=== PATIENT | female | born 1985 | race African-American/Black ===

== ENCOUNTER 2021-06-14 09:30 | Inpatient (IN) | payer OTHER, MEDICAID ==
[~2021-06-14] VITALS: Ht 165.1 cm; Wt 70.3 kg
[2021-06-14 09:40] VITALS: BP 219/108
--- NOTE | 2021-06-14 09:54 | NUR ---
38 YO F C/O ABD PAIN 07/06, WITH NAUSEA VOMITTING, STATED HAD BLOOD IN THE VOMIT. PT STATED HAD BEEN VOMITTING SINCE 2AM. PT STATED LAST MEAL WAS AT 5PM. PMH: HTN, DM, CKD. NKA
[2021-06-14] MEDS ORDERED: ONDANSETRON 4 MG/2 ML VIAL IVP ONE ×2 (09:55→12:10)
[2021-06-14] MEDS ORDERED: NACL 0.9% 1,000 ML IV SCH (09:55)
[2021-06-14] MEDS ORDERED: KETOROLAC 30 MG/ML VIAL IVP ONE (09:55)
[2021-06-14] MEDS ORDERED: MORPHINE SULFATE 4 MG/ML SYR IVP ONE ×2 (11:15→12:10)
[2021-06-14 11:48] LABS: BASOPHILS # (AUTO) 0.1 K/uL (0.00-0.22); BASOPHILS % (AUTO) 0.5 % (0.0-2.0); EOSINOPHILS # (AUTO) 0.1 K/uL (0-0.4); EOSINOPHILS % (AUTO) 0.7 % (0.0-4.0); HEMATOCRIT 34.1 % (36-48); HEMOGLOBIN 11.1 g/dL (12.0-16.0); LYMPHOCYTES % (AUTO) 5.1 % (20.5-51.1); MEAN CORPUSCULAR HEMOGLOBIN 29 pg (27-31); MEAN CORPUSCULAR HGB CONC 32 g/dL (33-37); MEAN CORPUSCULAR VOLUME 87.8 fL (80-94); MONOCYTES # (AUTO) 0.3 K/uL (0.8-1.0); MONOCYTES % (AUTO) 1.7 % (1.7-9.3); NEUTROPHILS # (AUTO) 17.4 K/uL (1.8-7.7); PLATELET COUNT (AUTO) 396 K/uL (140-450); RED BLOOD CELL COUNT(AUTO) 3.89 MIL/uL (4.20-5.40); RED CELL DISTRIBUTION WIDTH 15.2 % (11.6-13.7); WHITE BLOOD COUNT (AUTO) 18.8 K/uL (4.8-10.8)
[2021-06-14 12:00] LABS: ALBUMIN 3.6 g/dL (3.4-5.0); ANION GAP 15.9 (8-16); CARBON DIOXIDE 21.2 mmol/L (21-32); CREATININE 3.3 mg/dL (0.6-1.3); POTASSIUM 4.1 mmol/L (3.5-5.1); TOTAL BILIRUBIN 0.3 mg/dL (0.0-1.0)
[2021-06-14] MEDS ORDERED: guaiFENesin DM 200/20 MG-10 ML 10 ML UDC PO PRN (12:55)
[2021-06-14] MEDS ORDERED: DOCUSATE SODIUM 100 MG GELCAP PO PRN (12:55)
[2021-06-14] MEDS ORDERED: ACETAMINOPHEN 325 MG TAB PO PRN (12:55)
[2021-06-14] MEDS: DEXT 5% /NACL 0.9% 1,000 ML IV SCH (12:55)
[2021-06-14] MEDS ORDERED: ZOLPIDEM 5 MG TAB PO PRN (12:55)
[2021-06-14] MEDS ORDERED: POTASSIUM CHLORIDE 40 MEQ, LIDOCAINE MPF 1% 25 MG in NACL 0.9% 250 ML IV PRN (12:55)
[2021-06-14] MEDS ORDERED: PIPERACILLIN/TAZOBACTAM 3.375 GM in DEXTROSE 5% 50 ML IV SCH (13:00)
[2021-06-14] MEDS ORDERED: DEXTROSE 50% 50 ML SYR IVP PRN (13:00)
[2021-06-14] MEDS ORDERED: PIPERACILLIN/TAZOBACTAM 3.375 GM VIAL IV ONE (13:12)
[2021-06-14] MEDS ORDERED: MECLIZINE 25 MG TAB PO ONE (13:45)
[2021-06-14] MEDS ORDERED: MECLIZINE 25 MG TAB ONE (13:46)
[2021-06-14 13:47] LABS: PROTHROMBIN TIME 9.2 secs (10.8-13.4)
--- NOTE | 2021-06-14 14:34 | NUR ---
QUEEN MELANY [phone]
[2021-06-14] MEDS: HYDROcodone/APAP 7.5/325 MG 1 TAB PO PRN (14:38)
[2021-06-14] MEDS ORDERED: LABETALOL 100 MG/20 ML VIAL IV SCH (14:45)
--- NOTE | 2021-06-14 15:14 | NUR ---
VITAL SIGN, 167/136, HR 109, O2 SAT 100 RESP RATE 24, PATIENT EYES CLOSE AT THIS TIME, ENCOURAGED TO REST, IVF ONGOING WELL TOLERATED.
[2021-06-14] MEDS ORDERED: LORazepam 2 MG/ML VIAL ONE (16:24)
[2021-06-14] MEDS: LORazepam 2 MG/ML VIAL IM/IVP PRN (16:32)
[2021-06-14] MEDS: INSULIN LISPRO SLIDING SCALE 100 UNITS/ML VIAL SUBQ PRN (17:17)
[2021-06-14] MEDS: BLOOD GLUCOSE MONITORING 1 DEV DEV FS SCH ×2 (17:17→21:09)
[2021-06-14] MEDS: LABETALOL 100 MG/20 ML VIAL IV SCH ×2 (18:16→23:53)
--- NOTE | 2021-06-14 19:18 | NUR ---
BE TO EMR TRAINER NURSE MINDA FOR CONTINUOUS CARE
--- NOTE | 2021-06-14 19:22 | NUR ---
PT HAS EYES CLOSED; AROUSABLE, IVF RUNNING. NO ACUTE DISTRESS NOTED.. VSS.
[2021-06-14 19:35] LABS: CHOL/HDL RATIO 2.4 (1-4.5); MAGNESIUM 2.1 mg/dL (1.8-2.4); PHOSPHORUS 2.3 mg/dL (2.5-4.9); THYROID STIMULATING HORMONE 1.37 uIU/mL (0.34-3.74)
--- NOTE | 2021-06-14 20:00 | NUR ---
PATIENT WAS RECEIVED IN BED AWAKE AND ALERT, ABLE TO SPEAK HER NEEDS, NO S./S OF DISTRESS.
[2021-06-14 20:04] LABS: FREE T4 (FREE THYROXINE) 1.03 ng/dL (0.76-1.46)
[2021-06-14 20:23] LABS: APPEARANCE,URINE CLEAR (CLEAR); BILIRUBIN,URINE NEGATIVE (NEGATIVE); BLOOD, URINE 2+ (NEGATIVE); COLOR,URINE YELLOW (YELLOW); LEUKOCYTE ESTERASE ,URINE NEGATIVE (NEGATIVE); NITRITE, URINE NEGATIVE (NEGATIVE); PH,URINE 6.5 (5.0-9.0); UGLUCOSE TRACE (NEGATIVE)
[2021-06-14 20:44] LABS: BARBITURATE, URINE NEGATIVE ng/ml (NEG <=200); BENZODIAZEPINE, URINE NEGATIVE ng/mL (NEG <=200); CANNABINOID, URINE POSITIVE ng/mL (NEG <=50); COCAINE, URINE NEGATIVE ng/mL (NEG <=300); OPIATE, URINE NEGATIVE ng/mL (NEG <=2000); PHENCYCLIDINE SCREEN,URINE NEGATIVE ng/mL (NEG <=25)
--- NOTE | 2021-06-14 22:05 | NUR ---
REPORT GIVEN TO STEFANO FERGUSON PT TO GO TO RM 106B ADMITTED UNDER DR MONA LICEA.
[2021-06-14 22:13] LABS: WBC,URINE 0-5 /HPF (0-5)
--- NOTE | 2021-06-14 22:30 | NUR ---
PATIENT RECEIVED IN BED FROM ER, ALERT AND ORIENTED X 3, NO S/S OF DISTRESS, C/O TOLERABLE PAIN 12/13 IN HER ABD.
--- NOTE | 2021-06-14 23:00 | NUR ---
ALL DUE MEDS WERE GIVEN VIA IV, TOLERATED WELL BY THE PATIENT.
[2021-06-14] MEDS: hydrALAZINE 20 MG/ML VIAL IVP PRN (23:20)
--- NOTE | 2021-06-14 23:20 | NUR ---
APREZOLINE 10 MG IVP PRN WAS GIVEN FOR BP OF 212/102, HELPFUL AFTER 30 MINUTES.
--- NOTE | 2021-06-15 | NUR ---
LABETALOL 10 MG IVP DUE MED WAS GIVEN TO CONTROL HYPERTENSION, SOMEWHAT EFFECTIVE, BP WENT DOWN TO 157/85, OM=656 FROM 119.
--- NOTE | 2021-06-15 02:00 | NUR ---
PATIENT WENT OT THE BATHROOM HELPED UNHOOK TO THE IV PUMP. AND CONNECTED BACK AFTER SHE PEEH.
[2021-06-15 04:00] VITALS: BP 189/105
--- NOTE | 2021-06-15 05:00 | NUR ---
PATIENT WAS COMPLAINING OF ABD PAIN 03/15. NORCO 7/325 MG WAS GIVEN BY MOUTH, UNHELPFUL. MADE AWARE,
[2021-06-15] MEDS: HYDROcodone/APAP 7.5/325 MG 1 TAB PO PRN (05:04)
[2021-06-15] MEDS: DEXT 5% /NACL 0.9% 1,000 ML IV SCH (05:55)
[2021-06-15] MEDS: ONDANSETRON 4 MG/2 ML VIAL IM/IVP PRN ×2 (05:58→09:56)
[2021-06-15] MEDS: LABETALOL 100 MG/20 ML VIAL IV SCH ×2 (06:05→19:00)
[2021-06-15] MEDS: LORazepam 2 MG/ML VIAL IM/IVP PRN ×2 (06:25→17:35)
--- NOTE | 2021-06-15 06:57 | NUR ---
Debbie REPLIED WITH NEW ORDER OF MORPHINE 2 MG IVP X1 NOW.
--- NOTE | 2021-06-15 06:58 | NUR ---
ALL REPORTS WERE GIVEN, TRANSFER OF CARE ENDORSED.
[2021-06-15] MEDS ORDERED: MORPHINE SULFATE 2 MG/ML SYR IVP STA (07:00)
--- NOTE | 2021-06-15 07:05 | NUR ---
RECEIVED PATIENT FROM BOILERMAKER'S ASSISTANT RN FOR CONTINUITY OF CARE. PATIENT IS RESTING IN BED. NO S/S OF DISTRESS. ALL SAFETY PRECAUTIONS IN PLACE.
[2021-06-15 07:45] LABS: BASOPHILS # (AUTO) 0.1 K/uL (0.00-0.22); BASOPHILS % (AUTO) 0.5 % (0.0-2.0); EOSINOPHILS # (AUTO) 0.2 K/uL (0-0.4); EOSINOPHILS % (AUTO) 1.2 % (0.0-4.0); HEMATOCRIT 31.4 % (36-48); HEMOGLOBIN 10.1 g/dL (12.0-16.0); LYMPHOCYTES # (AUTO) 2.7 K/uL (2.5-16.5); LYMPHOCYTES % (AUTO) 14.6 % (20.5-51.1); MEAN CORPUSCULAR HEMOGLOBIN 29 pg (27-31); MEAN CORPUSCULAR HGB CONC 32 g/dL (33-37); MEAN CORPUSCULAR VOLUME 89.4 fL (80-94); MONOCYTES # (AUTO) 1.3 K/uL (0.8-1.0); MONOCYTES % (AUTO) 7.2 % (1.7-9.3); NEUTROPHILS # (AUTO) 14.1 K/uL (1.8-7.7); NEUTROPHILS % (AUTO) 76.5 % (42.2-75.2); PLATELET COUNT (AUTO) 390 K/uL (140-450); RED BLOOD CELL COUNT(AUTO) 3.51 MIL/uL (4.20-5.40); WHITE BLOOD COUNT (AUTO) 18.4 K/uL (4.8-10.8)
[2021-06-15] MEDS: BLOOD GLUCOSE MONITORING 1 DEV DEV FS SCH ×4 (07:48→20:50)
[2021-06-15 08:00] VITALS: BP 155/93
[2021-06-15 08:08] LABS: T4 (THYROXINE) 8.4 ug/dL (4.5-12.0)
--- NOTE | 2021-06-15 09:00 | NUR ---
ADMINISTERED SCHEDULED MEDICATIONS. PATIENT VERBALIZED UNDERSTANDING. ALL SAFETY PRECAUTIONS IN PLACE.
--- NOTE | 2021-06-15 09:02 | NUR ---
PATIENT HAS BEEN SCREENED AND CATEGORIZED LOW NUTRITION RISK. PATIENT WILL BE SEEN WITHIN 7 DAYS OF ADMISSION. 06/21/21 FNS REFERRAL RECEIVED FOR NAUSEA AND VOMITING OVER 3 DAYS NOT APPROPRIATE, ACCORDING TO MD H&P NOTE, PT'S SYMPTOMS BEGAN YESTERDAY. JACQUI PHELPS RD
[2021-06-15] MEDS: PANTOPRAZOLE 40 MG INJ VIAL IVP SCH (09:51)
[2021-06-15] MEDS ORDERED: HYDROmorphone 1 MG/ML AMP IVP SCH ×2 (11:00→19:10)
[2021-06-15 11:02] LABS: ANION GAP 21.6 (8-16); CARBON DIOXIDE 19.1 mmol/L (21-32); CREATININE 3.4 mg/dL (0.6-1.3); POTASSIUM 3.7 mmol/L (3.5-5.1)
--- NOTE | 2021-06-15 11:10 | NUR ---
PATIENT COMPLAINS OF 10/[address] DUNN. ADMINISTERED ONE TIME DOSE OF DILAUDID PER DR. DUNN. PATIENT VERBALIZED UNDERSTANDING. ALL SAFETY PRECAUTIONS IN PLACE. WILL CONTINUE TO MONITOR.
[2021-06-15] MEDS: NACL 0.45% 1,000 ML IV SCH (11:30)
[2021-06-15 12:00] VITALS: BP 187/120
[2021-06-15] MEDS: INSULIN LISPRO SLIDING SCALE 100 UNITS/ML VIAL SUBQ PRN ×2 (12:55→20:55)
--- NOTE | 2021-06-15 13:28 | NUR ---
DR. DUNN APPROVED PATIENT TO HAVE A FOOT IV. FOOT IV WAS OBTAINED. IV IS AT LEFT FOOT, 22G, FLUSHES WELL AND IS DRY, PATENT AND INTACT.
[2021-06-15] MEDS ORDERED: LABETALOL 100 MG/20 ML VIAL IV SCH (13:42)
[2021-06-15] MEDS ORDERED: METOCLOPRAMIDE 10 MG/2 ML INJ VIAL IVP PRN (13:55)
[2021-06-15 16:00] VITALS: BP 156/95
--- NOTE | 2021-06-15 16:50 | NUR ---
RECEIVED TORB FROM DR. DUNN TO CHANGE PATIENT'S DIET TO CLEAR LIQUIDS. ORDER INPUT. WILL CONTINUE TO MONITOR THE PATIENT.
--- NOTE | 2021-06-15 19:06 | NUR ---
NOTIFIED DR DUNN OF PATIENT'S CURRENT PAIN AND COMPLAINT OF NAUSEA. ALSO PLACED NEW IV AT LEFT FOOT 20G. IV IS CLEAN, DRY, INTACT, AND FLUSHING WELL.
--- NOTE | 2021-06-15 19:19 | NUR ---
PATIENT COMPLAINS OF 10/10 ABDOMINAL PAIN. ADMINISTERED ONE TIME DOSE OF DILAUDID PER DR. DUNN. BP 156/95, HR 104.
--- NOTE | 2021-06-15 19:25 | NUR ---
ENDORSED PATIENT TO FREIGHT SOLICITOR RN FOR CONTINUITY OF CARE. PATIENT IS STABLE.
[2021-06-15 20:00] VITALS: BP 155/93
[2021-06-15] MEDS: hydrALAZINE 20 MG/ML VIAL IVP PRN (20:51)
[2021-06-16] VITALS: BP 166/77
[2021-06-16] MEDS: LABETALOL 100 MG/20 ML VIAL IV SCH
[2021-06-16] MEDS: NACL 0.45% 1,000 ML IV SCH ×2 (00:50→11:23)
[2021-06-16 04:00] VITALS: BP 130/79
[2021-06-16] MEDS: BLOOD GLUCOSE MONITORING 1 DEV DEV FS SCH ×4 (05:55→20:35)
--- NOTE | 2021-06-16 06:55 | NUR ---
ENDORSED PATIENT TO UPHOLSTERER ASSEMBLY LINE RN FOR CONTINUITY OF CARE. PATIENT IS STABLE.
[2021-06-16 07:24] LABS: BASOPHILS # (AUTO) 0.1 K/uL (0.00-0.22); BASOPHILS % (AUTO) 0.9 % (0.0-2.0); EOSINOPHILS # (AUTO) 0.5 K/uL (0-0.4); EOSINOPHILS % (AUTO) 3.6 % (0.0-4.0); HEMATOCRIT 26.6 % (36-48); HEMOGLOBIN 8.7 g/dL (12.0-16.0); LYMPHOCYTES # (AUTO) 2.6 K/uL (2.5-16.5); LYMPHOCYTES % (AUTO) 19.7 % (20.5-51.1); MEAN CORPUSCULAR HEMOGLOBIN 29 pg (27-31); MEAN CORPUSCULAR HGB CONC 33 g/dL (33-37); MEAN CORPUSCULAR VOLUME 87.4 fL (80-94); MONOCYTES # (AUTO) 0.9 K/uL (0.8-1.0); MONOCYTES % (AUTO) 6.7 % (1.7-9.3); NEUTROPHILS # (AUTO) 9.1 K/uL (1.8-7.7); NEUTROPHILS % (AUTO) 69.1 % (42.2-75.2); PLATELET COUNT (AUTO) 326 K/uL (140-450); RED BLOOD CELL COUNT(AUTO) 3.05 MIL/uL (4.20-5.40); RED CELL DISTRIBUTION WIDTH 15.7 % (11.6-13.7); WHITE BLOOD COUNT (AUTO) 13.2 K/uL (4.8-10.8)
--- NOTE | 2021-06-16 07:59 | NUR ---
RECEIVED REPORT FROM NIGHT, PT IS ADMITTED FOR INTRACTABLE NAUSEA VOMITING, PT HAS HX OF UNCONTROLLED HTN, ON CLEAR DIET, PT IS ON TELE MONITOR, SINUS TACHY, LAST BLOOD GLUCOSE WAS 137, PT IS ON IV ANTIHYPERTENSIVES. WILL CONTINUE TO MONITOR PT.
[2021-06-16 08:00] VITALS: BP 137/79
[2021-06-16 08:58] LABS: ANION GAP 19.3 (8-16); CARBON DIOXIDE 19.8 mmol/L (21-32); CREATININE 3.3 mg/dL (0.6-1.3); POTASSIUM 4.1 mmol/L (3.5-5.1)
[2021-06-16] MEDS: PANTOPRAZOLE 40 MG INJ VIAL IVP SCH (09:28)
--- NOTE | 2021-06-16 09:34 | NUR ---
ADMINISTERED PRESCRIBED MEDICATIONS PER MD ORDER. PT IS IN THE BED DENIES PAIN AND DISCOMFORT.
[2021-06-16] MEDS ORDERED: LABETALOL 100 MG/20 ML VIAL IV PRN (10:45)
[2021-06-16] MEDS ORDERED: carvediloL 12.5 MG TAB PO SCH (10:49)
[2021-06-16] MEDS: INSULIN LISPRO SLIDING SCALE 100 UNITS/ML VIAL SUBQ PRN (11:16)
--- NOTE | 2021-06-16 11:16 | NUR ---
ADMINISTERED BLOOD PRESSURE MEDICATION BP 137/79, HR 102. BLOOD SUGAR 157 ADMINISTERED 2 UNITS OF INSULIN. WILL CONTINUE TO MONITOR PT FOR HYPO/HYPER GLYCEMIA.
--- NOTE | 2021-06-16 11:24 | NUR ---
CHANGED IV BAG LAST BAG IS EMPTY.
[2021-06-16 12:00] VITALS: BP 137/79
[2021-06-16] MEDS: METOCLOPRAMIDE 10 MG/2 ML INJ VIAL IVP SCH ×2 (12:21→20:34)
--- NOTE | 2021-06-16 12:30 | NUR ---
PT IS IN THE BED SLEEPING NO SOB OR S/S OF PAIN NOTED.
--- NOTE | 2021-06-16 13:30 | NUR ---
HOURLY ROUND DONE PT REQUEST TO ASSIST TO GO TO RESTROOM DISCONNECTED FROM IV AND RECONNECTED AFTER PT IS DONE.
--- NOTE | 2021-06-16 14:30 | NUR ---
PT WAS COMPLAINING OF ITCHINESS AROUND THE IV SITE, IV SITE WAS COVER WITH THE DRESSING. REMOVED DRESSING PUT LOTION ON IT AND COVER IT BACK. THERE WAS NO DRAINAGE AROUND THE IV SITE. WILL CONTINUE TO MONITOR PT
--- NOTE | 2021-06-16 15:30 | NUR ---
PT GET OUT OF THE BED AND DISCONNECTED IV, WENT IN AND RECONNECTED IT. EDUCATED PT TO CALL FOR HELP. CALL LIGHT IS IN REACH. WILL CONTINUE TO ASSESS THE PT.
[2021-06-16 16:00] VITALS: BP 160/87
--- NOTE | 2021-06-16 16:10 | NUR ---
BLOOD SUGAR 109 NO INSULIN COVERAGE NEEDED. WILL CONTINUE TO ASSESS PT FOR S/S OF HYPO/HYPER GLYCEMIA.
[2021-06-16] MEDS: HYDROcodone/APAP 7.5/325 MG 1 TAB PO PRN (17:46)
--- NOTE | 2021-06-16 17:48 | NUR ---
PT COMPLAIN OF PAIN ADMINISTERED NORCO PER MD ORDER. WILL CONTINUE TO ASSESS PT.
--- NOTE | 2021-06-16 18:39 | NUR ---
PT IS SLEEPING IN THE BED DENIES PAIN AND DISCOMFORT. PT REPORTED THAT PAIN MEDICATIONS HELP HER.
--- NOTE | 2021-06-16 19:19 | NUR ---
ENDORSED THE NIGHT NURSE FOR CONTINUITY OF CARE. PT IS STABLE.
--- NOTE | 2021-06-16 19:20 | NUR ---
RECEIVED BEDSIDE ENDORSEMENT FROM AM SHIFT RN. PT HAS A RIGHT ANKLE 22G -INTACT & PATENT, NS AT 75MLS, DENIES PAIN, SAFETY MEASURES IN PLACE, ON ROOM AIR, WILL CONTINUE TO MONITOR.
[2021-06-16 20:00] VITALS: BP 138/80
--- NOTE | 2021-06-16 20:05 | NUR ---
RECEIVED REPORT AT BEDSIDE.PT IS A,A&O X4.RESP.UNLABORED IN RA.IVF INFUSING WELL.TELE IS ON AND SHOWING SR.CALL LIGHT WITHIN REACH.NO C/O PAIN NOW.WILL CONT.MONITORING.
[2021-06-16] MEDS: carvediloL 12.5 MG TAB PO SCH (20:35)
--- NOTE | 2021-06-16 20:36 | NUR ---
ADMINISTERED SCHEDULED MEDICATIONS, PATIENT IS KEPT COMFORTABLE, IV SITE IS CLEAN, DRY, AND INTACT, SAFETY MEASURES IN PLACE, WILL CONTINUE TO MONITOR.
--- NOTE | 2021-06-16 23:00 | NUR ---
PATIENT IN BED, KEPT COMFORTABLE, CALL LIGHT WITHIN REACH, ON ROOM AIR, WILL CONTINUE TO MONITOR.
[2021-06-17] VITALS: BP 126/77
[2021-06-17] MEDS: NACL 0.45% 1,000 ML IV SCH (02:03)
--- NOTE | 2021-06-17 02:25 | NUR ---
PT IS ASLEEP, KEPT COMFORTABLE, NO SIGNS OF DISTRESS, HAS NEW NS BAG RUNNING, CALL LIGHT WITHIN REACH, WILL CONTINUE TO MONITOR
[2021-06-17 04:00] VITALS: BP 143/79
--- NOTE | 2021-06-17 04:00 | NUR ---
PT IS ASLEEP, KEPT COMFORTABLE, NO SIGNS OF DISTRESS, SAFETY MEASURES IN PLACE, WILL CONTINUE TO MONITOR.
[2021-06-17] MEDS: METOCLOPRAMIDE 10 MG/2 ML INJ VIAL IVP SCH ×2 (05:55→13:08)
[2021-06-17] MEDS: BLOOD GLUCOSE MONITORING 1 DEV DEV FS SCH ×2 (07:03→11:24)
[2021-06-17] MEDS: INSULIN LISPRO SLIDING SCALE 100 UNITS/ML VIAL SUBQ PRN (07:04)
--- NOTE | 2021-06-17 07:05 | NUR ---
CHECKED BS. NO INSULIN NEEDED PER SLIDING SCALE. BS 133. PATIENT IS STABLE, A&O X4, WILL CONTINUE TO MONITOR.
--- NOTE | 2021-06-17 07:20 | NUR ---
PASSED BEDSIDE ENDORSEMENT TO AM SHIFT RN, ALL INTERVENTIONS COMPLETED, PATIENT STABLE.
--- NOTE | 2021-06-17 07:26 | NUR ---
RECEIVED REPORT FROM NIGHT NURSE, PT IS IN THE BED NO SOB NOTED. PT DENIES PAIN AND DISCOMFORT. PT IS ALERT ORIENTED X 4. IV ACCESS ON RIGHT ANKLE, NS RUNNING AT 75 ML/HR. SKIN IS INTACT. PT IS ON FULL LIQUID DIET. MONITORING FOR GI BLEED. PLAN OF CARE DISCUSSED WILL CONTINUE TO FOLLOW.
[2021-06-17 08:00] VITALS: BP 153/89
[2021-06-17] MEDS: PANTOPRAZOLE 40 MG INJ VIAL IVP SCH (08:21)
[2021-06-17] MEDS: carvediloL 12.5 MG TAB PO SCH (08:21)
--- NOTE | 2021-06-17 08:30 | NUR ---
PT IS IN THE BED SLEEPING NO SOB NOTED, WILL CONTINUE TO MONITOR PT.
--- NOTE | 2021-06-17 09:30 | NUR ---
PT RECEIVED ALL SCHEDULE MEDICATIONS PER MD ORDER. WILL CONTINUE TO MONITOR PT.
--- NOTE | 2021-06-17 11:24 | NUR ---
PT'S BLOOD SUGAR IS 145, NO INSULIN COVERAGE NEEDED. WILL CONTINUE TO ASSESS PT FOR S/S OF HYPO/HYPER GLYCEMIA.
[2021-06-17 12:00] VITALS: BP 138/82
--- NOTE | 2021-06-17 12:30 | NUR ---
PT REQUESTED TO BE DISCHARGED TODAY, EDUCATED PT THAT SHE IS NOT CLEARED BY THE DOCTOR TO BE DISCHARGED TODAY. PT VERBALIZED THE UNDERSTANDING.
--- NOTE | 2021-06-17 13:00 | NUR ---
PT IS REFUSING TO STAY IN THE HOSPITAL FOR FURTHER EVALUATION. AND ASKING TO LEAVE AMA. INFORMED THE DOCTOR AND PREPARING AMA FORM FOR THE PT. EDUCATED PT ABOUT RISK OF LEAVING AMA, PT STATED SHE STILL WANTS TO LEAVE.
--- NOTE | 2021-06-17 14:04 | NUR ---
INFORMED THE PT THAT DOCTOR PUT THE ORDER FOR DISCHARGE AND IT WILL TAKE 30 MINS TO PREPARE PAPERWORK, PT STATED SHE DO NOT WANT TO WAIT AND SHE WOULD LIKE TO LEAVE RIGHT NOW.
--- NOTE | 2021-06-17 14:06 | NUR ---
DC THE IV ACCESS, REMOVE THE ID BAND, CHANGE PT IN HER CLOTHES. WALKED PT TO THE FRONT LOBBY.
[2021-06-17] MEDS ORDERED: carvediloL 12.5 MG TAB PO SCH (21:00)
== END 2021-06-17 14:07 | disposition left against medical advice (07) | DRG 871 ==
LOC: EDBD 09:30 → MED 09:30 → MTU 13:06
PROVIDERS: ADMIT Family Medicine; ATTEND Family Medicine
DX: A41.9 Sepsis, unspecified organism (principal); N17.0 Acute kidney failure with tubular necrosis; K92.0 Hematemesis; I16.1 Hypertensive emergency; N18.4 Chronic kidney disease, stage 4 (severe); I12.9 Hypertensive chronic kidney disease with stage 1 through stage 4 chronic kidney disease, or unspecified chronic kidney disease; E11.22 Type 2 diabetes mellitus with diabetic chronic kidney disease; D64.9 Anemia, unspecified; Z53.29 Procedure and treatment not carried out because of patient's decision for other reasons; E11.43 Type 2 diabetes mellitus with diabetic autonomic (poly)neuropathy; K31.84 Gastroparesis; M32.14 Glomerular disease in systemic lupus erythematosus
CPT/HCPCS: 36415; 71045; 76770; 80048; 80053; 80305; 81001; 82150; 82948; 83036; 83690; 83735; 83880; 84100; 84436; 84439; 84443; 84479; 84484; 85025; 85610; 85730; 87081; 93005; 96361; 96365; 96375; 96376; 99285; C9113; J0360; J1170; J1815; J1885; J2060; J2270; J2405; J2543; J2765; J3490; J8597; Q0092

== ENCOUNTER 2021-06-26 11:50 | Inpatient (IN) | payer OTHER, MEDICAID ==
[~2021-06-26] VITALS: Ht 165.1 cm; Wt 70.3 kg
--- NOTE | 2021-06-26 11:57 | NUR ---
1ST CALL ER LOBBY/TENT/BACK ER DOOR NO ANSWER.
[2021-06-26] MEDS ORDERED: METOCLOPRAMIDE 10 MG/2 ML INJ VIAL IVP ONE ×2 (12:20→12:40)
[2021-06-26] MEDS ORDERED: NACL 0.9% 1,000 ML IV ONE (12:20)
[2021-06-26] MEDS ORDERED: diphenhydrAMINE 50 MG/ML VIAL IVP ONE (12:40)
[2021-06-26] MEDS ORDERED: diphenhydrAMINE 50 MG/ML VIAL ONE (12:41)
[2021-06-26] MEDS ORDERED: METOCLOPRAMIDE 10 MG/2 ML INJ VIAL ONE (12:41)
[2021-06-26 12:45] VITALS: BP 208/107
--- NOTE | 2021-06-26 12:45 | NUR ---
WHEELCHAIR ASSISTED TO BED 4.
[2021-06-26] MEDS ORDERED: MORPHINE SULFATE 4 MG/ML SYR IVP ONE ×2 (12:50→13:35)
--- NOTE | 2021-06-26 12:55 | NUR ---
Lab at bedside
--- NOTE | 2021-06-26 12:55 | NUR ---
35 y/o F BIB self from home c/o nausea, vomiting x >20 episodes and abdominal pain. Patient A&Ox4, ambulatory, states states abdominal pain to epigastric region 8/10, sharp/constant, non-radiating x 1 day. Patient denies fever, chills, SOB, CP. Pt presents with BP 205/106, HR 128, SpO2 100% on room air. Dexacon device to [facility]. gambling monitor in place. Bed locked in lowest position, side rails x 1, call light in reach. PMH: DM, CKD, HTN, gastroporesis Meds: amlodipine, zofran, compazine, insulin humalog, insulin lantus, elavil, labetalol NKA
--- NOTE | 2021-06-26 12:55 | NUR ---
EMT at bedside for EKG
--- NOTE | 2021-06-26 13:00 | NUR ---
RAD at bedside
[2021-06-26 13:12] LABS: BASOPHILS # (AUTO) 0.1 K/uL (0.00-0.22); BASOPHILS % (AUTO) 0.8 % (0.0-2.0); EOSINOPHILS # (AUTO) 0.3 K/uL (0-0.4); EOSINOPHILS % (AUTO) 1.7 % (0.0-4.0); HEMATOCRIT 34.1 % (36-48); HEMOGLOBIN 11.1 g/dL (12.0-16.0); LYMPHOCYTES # (AUTO) 1.2 K/uL (2.5-16.5); LYMPHOCYTES % (AUTO) 6.4 % (20.5-51.1); MEAN CORPUSCULAR HEMOGLOBIN 29 pg (27-31); MEAN CORPUSCULAR HGB CONC 33 g/dL (33-37); MEAN CORPUSCULAR VOLUME 89.8 fL (80-94); MONOCYTES # (AUTO) 0.3 K/uL (0.8-1.0); MONOCYTES % (AUTO) 1.5 % (1.7-9.3); NEUTROPHILS % (AUTO) 89.6 % (42.2-75.2); PLATELET COUNT (AUTO) 353 K/uL (140-450); RED CELL DISTRIBUTION WIDTH 17.4 % (11.6-13.7)
--- NOTE | 2021-06-26 13:14 | NUR ---
PATIENT AMBULATED TO RESTROOM FOR UA; TOP HAT PROVIDED.
[2021-06-26 13:29] LABS: ALBUMIN 3.9 g/dL (3.4-5.0); ANION GAP 16.7 (8-16); CARBON DIOXIDE 23.6 mmol/L (21-32); CREATININE 3.6 mg/dL (0.6-1.3); PROTHROMBIN TIME 9.4 secs (10.8-13.4); TOTAL BILIRUBIN 0.4 mg/dL (0.0-1.0)
[2021-06-26 13:29] LABS: APPEARANCE,URINE CLEAR (CLEAR); BILIRUBIN,URINE NEGATIVE (NEGATIVE); BLOOD, URINE 1+ (NEGATIVE); COLOR,URINE YELLOW (YELLOW); LEUKOCYTE ESTERASE ,URINE NEGATIVE (NEGATIVE); NITRITE, URINE NEGATIVE (NEGATIVE); UGLUCOSE NEGATIVE (NEGATIVE)
--- NOTE | 2021-06-26 13:29 | NUR ---
DR. TAVARES MADE AWARE BP 218/100. ORDERS TO BE PLACED
--- NOTE | 2021-06-26 13:34 | NUR ---
PER V.O. DR. REJI TAVARES HOLD ABG PROCEDURE AT THIS TIME DUE TO INCREASED B/P ERMD TO CALL
[2021-06-26] MEDS ORDERED: LABETALOL 100 MG/20 ML VIAL IVP ONE (13:35)
[2021-06-26] MEDS ORDERED: LABETALOL 250 MG in DEXTROSE 5% 200 ML IV SCH (13:35)
[2021-06-26 13:44] LABS: POTASSIUM 6.3 mmol/L (3.5-5.1)
[2021-06-26 13:49] LABS: RBC,URINE 11-20 (MOD) /HPF (0-5); WBC,URINE 0-5 /HPF (0-5)
[2021-06-26] MEDS ORDERED: HYDROmorphone PFS 2 MG/ML SYR IVP ONE (14:25)
--- NOTE | 2021-06-26 14:25 | NUR ---
Dr. Borjas is reevaluating patient at bedside
--- NOTE | 2021-06-26 14:39 | NUR ---
Patient reports relief to pain after Dilaudid 1mg IVP; rates pain 7/10.
--- NOTE | 2021-06-26 15:10 | NUR ---
Dr. Borjas made aware of blood pressure 140/75 and 128/76; advised to end Labetalol drip at this time.
--- NOTE | 2021-06-26 15:10 | NUR ---
William cronin in [facility] - 06/26/21 at [address] Borjas made aware of blood pressure 140/
[2021-06-26] MEDS ORDERED: PANT40EC PO (15:31)
[2021-06-26] MEDS ORDERED: ONDA4TAB PO (15:31)
--- NOTE | 2021-06-26 15:32 | NUR ---
Patient asleep laying on R side. secured entrance monitor and IVF continued. VSS; respirations even/unlabored. Bed locked in lowest position, side rails x 1, call light in reach.
[2021-06-26] MEDS ORDERED: PROC-62 PO (15:36)
[2021-06-26] MEDS ORDERED: BEN50 PO (15:36)
[2021-06-26] MEDS ORDERED: TRA200 PO (15:36)
[2021-06-26] MEDS ORDERED: AMIT10TA36 PO (15:36)
[2021-06-26] MEDS ORDERED: AMLO10TA PO (15:36)
[2021-06-26] MEDS ORDERED: HUMALO (15:43)
[2021-06-26] MEDS ORDERED: LANTUS (15:43)
--- NOTE | 2021-06-26 15:55 | NUR ---
Patient resting with both eyes open on phone in no distress. color television console monitor remains in place. VSS; respirations even/unlabored. Bed locked in lowest position, side rails x 2.
--- NOTE | 2021-06-26 16:35 | NUR ---
Naa motley swab collected, handed to CPT Caryn at ER bedside
[2021-06-26] MEDS ORDERED: ONDANSETRON 4 MG/2 ML VIAL IVP PRN (16:50)
[2021-06-26] MEDS ORDERED: CALCIUM GLUCONATE 10% 1000 MG/10 ML VIAL IVP SCH (17:58)
[2021-06-26] MEDS ORDERED: MAGNESIUM OXIDE 400 MG TAB PO PRN (18:00)
[2021-06-26] MEDS ORDERED: ACETAMINOPHEN 325 MG TAB PO PRN (18:00)
[2021-06-26] MEDS ORDERED: MORPHINE SULFATE 2 MG/ML SYR IVP PRN (18:00)
[2021-06-26] MEDS ORDERED: DOCUSATE SODIUM 100 MG GELCAP PO PRN (18:00)
[2021-06-26] MEDS ORDERED: DEXTROSE 50% 50 ML SYR IVP PRN (18:00)
[2021-06-26] MEDS ORDERED: HYDROcodone/APAP 5/325 MG 1 TAB TAB PO PRN (18:00)
[2021-06-26] MEDS ORDERED: INSULIN LISPRO SLIDING SCALE 100 UNITS/ML VIAL SUBQ PRN (18:00)
[2021-06-26 18:33] LABS: BARBITURATE, URINE NEGATIVE ng/ml (NEG <=200); BENZODIAZEPINE, URINE NEGATIVE ng/mL (NEG <=200); CANNABINOID, URINE POSITIVE ng/mL (NEG <=50); COCAINE, URINE NEGATIVE ng/mL (NEG <=300); OPIATE, URINE NEGATIVE ng/mL (NEG <=2000); PHENCYCLIDINE SCREEN,URINE NEGATIVE ng/mL (NEG <=25)
[2021-06-26 19:03] LABS: MAGNESIUM 2.4 mg/dL (1.8-2.4); PHOSPHORUS 3.4 mg/dL (2.5-4.9)
[2021-06-26 19:23] LABS: ANION GAP 17.7 (8-16); CARBON DIOXIDE 20.8 mmol/L (21-32); CREATININE 3.7 mg/dL (0.6-1.3); POTASSIUM 5.5 mmol/L (3.5-5.1)
--- NOTE | 2021-06-26 19:23 | NUR ---
RECD. RESTING IN BED, AWAKE, A/OX4. RESPIRATION EVEN AND UNLABORED. IV OF NS INFUSING AT 60 ML/HR, RIGHT AC G18. INDEPENDENT, AMBULATORY TO THE . ON ROOM AIR, 02 SATURATION AT 93%. NO NAUSEA AND VOMITING NOTED. DENIES PAIN 0. Addendum: 06/27/21 at 2344 by Suri Gutierrez LVN CORRECTION: WRONG ENTRY FOR THIS DATE. PLEASE DISREGARD THIS CHARTING FOR THIS PATIENT.
--- NOTE | 2021-06-26 19:23 | NUR ---
Report and transfer of care endorsed to MARTY Freire.
[2021-06-26] MEDS: NACL 0.9% 1,000 ML IV SCH (21:40)
[2021-06-26] MEDS: LABETALOL 200 MG TAB PO SCH (21:40)
[2021-06-26] MEDS: AMITRIPTYLINE 10 MG TAB PO SCH (21:40)
[2021-06-26] MEDS: BLOOD GLUCOSE MONITORING 1 DEV DEV FS SCH (21:43)
--- NOTE | 2021-06-26 22:00 | NUR ---
Patient will be admitted to care of . Admited to TELE. Will go to room 105A. Belongings list completed. Report to AMIRA FERGUSON.
[2021-06-26] MEDS: SODIUM ZIRCONIUM CYCLOSILICATE 10 GM POWD.PACK PO SCH (22:06)
--- NOTE | 2021-06-26 22:50 | NUR ---
PT TAKEN TO [facility], RM 105A. TRANSFER OF CARE MARTY COLLIER.
--- NOTE | 2021-06-26 23:30 | NUR ---
ADMISSION NOTE FOR A 35 YEAR OLD FEMALE PATIENT OF DOCTOR FORBES WITH A DIAGNOSIS OF HYPERTENSIVE EMERGENCY, INTRACTABLE VOMITING AND ACUTE RENAL FAILURE. FAMILY HISTORY OF RENAL FAILURE. PATIENT IS BEING MONITORED ON TELEMETRY AT A RATE OF 94 HEART BEATS PER MINUTE AND SINUS RHYTHM. PATIENT IS ALERT AND ORIENTED X4 EASILY AWAKENS TO TOUCH AND ABLE TO MAKE NEEDS KNOWN. INTRODUCTION TO UNIT A CALL BURDICK. BED TO LOWEST POSITION WITH TWO SIDE RAILS UP. BEDSIDE COMMODE PROVIDED PER PATIENT REQUEST. AMIRA PAGAN RN
[2021-06-27] VITALS (7 sets, daily range): BP systolic 124–149; BP diastolic 68–98
[2021-06-27] MEDS: BLOOD GLUCOSE MONITORING 1 DEV DEV FS SCH ×4 (06:40→21:00)
--- NOTE | 2021-06-27 07:35 | NUR ---
HANDOFF WITH MARTY DUMONT. AMIRA PAGAN RN
[2021-06-27 07:36] LABS: ANION GAP 14.8 (8-16); CARBON DIOXIDE 25.7 mmol/L (21-32); CREATININE 3.5 mg/dL (0.6-1.3); POTASSIUM 4.5 mmol/L (3.5-5.1)
[2021-06-27 07:51] LABS: BASOPHILS # (AUTO) 0.1 K/uL (0.00-0.22); BASOPHILS % (AUTO) 0.4 % (0.0-2.0); EOSINOPHILS # (AUTO) 0.4 K/uL (0-0.4); EOSINOPHILS % (AUTO) 2.6 % (0.0-4.0); HEMATOCRIT 27.7 % (36-48); HEMOGLOBIN 8.9 g/dL (12.0-16.0); LYMPHOCYTES # (AUTO) 2.9 K/uL (2.5-16.5); LYMPHOCYTES % (AUTO) 19.8 % (20.5-51.1); MEAN CORPUSCULAR HEMOGLOBIN 30 pg (27-31); MEAN CORPUSCULAR HGB CONC 32 g/dL (33-37); MEAN CORPUSCULAR VOLUME 91.6 fL (80-94); MONOCYTES # (AUTO) 0.9 K/uL (0.8-1.0); MONOCYTES % (AUTO) 6.4 % (1.7-9.3); NEUTROPHILS # (AUTO) 10.4 K/uL (1.8-7.7); NEUTROPHILS % (AUTO) 70.8 % (42.2-75.2); PLATELET COUNT (AUTO) 337 K/uL (140-450); RED BLOOD CELL COUNT(AUTO) 3.02 MIL/uL (4.20-5.40); RED CELL DISTRIBUTION WIDTH 17.5 % (11.6-13.7); WHITE BLOOD COUNT (AUTO) 14.6 K/uL (4.8-10.8)
--- NOTE | 2021-06-27 08:00 | NUR ---
RECEIVED REPORT FROM SERVICE DESK MANAGER AT BEDSIDE FOR CONTINUITY OF CARE. INITIAL ASSESSMENT INITIATED. ALERT AWAKE ORIENTED X4, NOT IN ANY DISTRESS NOTED. DENIES PAIN, NO SOB NOTED. USES BEDSIDE COMMODE NEEDED. IFV ON GOING AND INFUSING WELL. ON MONITOR SHOWS SR. WILL CONTINUE TO MONITOR.
[2021-06-27] MEDS: amLODIPine 5 MG TAB PO SCH (09:08)
[2021-06-27] MEDS: LABETALOL 200 MG TAB PO SCH ×2 (09:08→22:45)
[2021-06-27] MEDS: PANTOPRAZOLE 40 MG INJ VIAL IVP SCH (09:08)
[2021-06-27] MEDS: NACL 0.9% 1,000 ML IV SCH (10:40)
--- NOTE | 2021-06-27 14:20 | NUR ---
RESTING IN BED, DENIOES PAIN. WILL CONTINUE TO MONITOR.
--- NOTE | 2021-06-27 15:18 | NUR ---
PATIENT HAS BEEN SCREENED AND CATEGORIZED MODERATE NUTRITION RISK. PATIENT WILL BE SEEN WITHIN 3-5 DAYS OF ADMISSION. 06/29/21 07/01/[address]
--- NOTE | 2021-06-27 15:53 | NUR ---
DC PLANNING: CM MET WITH THE PATIENT AT BEDSIDE. SHE LIVES IN [place] BUT WAS VISITING A FRIEND IN [place] WHEN SHE DEVELOPED N/V RELATED TO CHRONIC GASTROPARESIS. THE PATIENT IS DIABETIC AND HAS SERA AND IS FOLLOWED AT [facility] BY A TRANSFER TABLE OPERATOR HELPER, INSIDE SALES AND GI SPECIALIST. SHE HAS A DEXCOM GLUCOSE MONITORING DEVICE AND IS WAITING FOR AN INSULIN PUMP. THE PATIENT IS COMPLIANT WITH MANAGEMENT OF HER CO-MORBIDITIES AND FOLLOWS UP AT [facility] EVERY ONE TO TWO MONTHS. SHE HAS AN [employer] WORKER WHO HAS 80 HRS/MONTH AND DOES HOUSEKEEPING AND SOME TRANSPORT FOR THE PATIENT. THE PATIENT ALSO DRIVES. NO H/O HOME HEALTH OR DME, NO DC NEEDS IDENTIFIED. THE PLAN IS FOR THE PATIENT TO DC TO HOME WHEN CLINICALLY STABLE, CM WILL FOLLOW FOR NEEDS.
[2021-06-27] MEDS: SODIUM ZIRCONIUM CYCLOSILICATE 10 GM POWD.PACK PO SCH (18:28)
--- NOTE | 2021-06-27 19:22 | NUR ---
REPORT GIVEN TO COLLECTION TECHNICIAN AT BEDSIDE FOR CONTINUITY OF CARE. PATIENT IN STABLE CONDITION.
--- NOTE | 2021-06-27 19:23 | NUR ---
RECD. RESTING IN BED, AWAKE, A/OX4. RESPIRATION EVEN AND UNLABORED. IV OF NS INFUSING AT 60 ML/HR, RIGHT AC G18. INDEPENDENT, AMBULATORY TO THE BR. ON ROOM AIR, 02 SATURATION AT 93%. NO NAUSEA AND VOMITING NOTED. DENIES PAIN 0/10.
--- NOTE | 2021-06-27 20:45 | NUR ---
SLEEPING COMFORTABLY IN BED.
[2021-06-27] MEDS ORDERED: METOCLOPRAMIDE 10 MG/2 ML INJ VIAL IVP PRN (21:35)
--- NOTE | 2021-06-27 22:30 | NUR ---
AWAKE IN BED, SNACK FOR THE NIGHT GIVEN. WANTS FOR A SLEEPING PILL TONIGHT. WILL CALL MD FOR ORDER.
[2021-06-27] MEDS: AMITRIPTYLINE 10 MG TAB PO SCH (22:44)
[2021-06-27] MEDS ORDERED: ZOLPIDEM 5 MG TAB PO PRN (23:50)
--- NOTE | 2021-06-28 01:13 | NUR ---
UNABLE TO SLEEP, MEDICATED WITH AMBIEN PER MD ORDER.
--- NOTE | 2021-06-28 02:30 | NUR ---
SLEEPING COMFORTABLY IN BED.
[2021-06-28] MEDS: NACL 0.9% 1,000 ML IV SCH (03:08)
--- NOTE | 2021-06-28 04:30 | NUR ---
COMFORTABLE IN BED, STILL ASLEEP. RESPIRATION EVEN AND UNLABORED.
--- NOTE | 2021-06-28 05:45 | NUR ---
REFUSED AM BLOOD DRAW.
[2021-06-28] MEDS: BLOOD GLUCOSE MONITORING 1 DEV DEV FS SCH ×2 (07:11→11:30)
[2021-06-28] MEDS ORDERED: METO-485 PO (07:13)
--- NOTE | 2021-06-28 07:25 | NUR ---
NO N/V NOTED DURING SHIFT. CONDITION REMAIN STABLE. ENDORSED TO CHARGE NURSE JULIA FOR CONTINUITY OF CARE.
--- NOTE | 2021-06-28 07:56 | NUR ---
RECEIVED REPORT FROM CLINIC LEAD FOR CONTINUITY OF CARE. PATIENT ALERT AWAKE ORIENTED X4.NOT IN DISTRESS NOTED. NO NAUSEA AND VOMITING, DENIES PAIN. WITH IVF ON GOING AND INFUSING WELL. CALL LIGHT WITHIN REACH. NEEDS ATTENDED. WITH ORDER FOR DISCHARGE. WILL CONTINUE TO MONITOR.
[2021-06-28 08:00] VITALS: BP 159/97
[2021-06-28] MEDS: amLODIPine 5 MG TAB PO SCH (09:36)
[2021-06-28] MEDS: PANTOPRAZOLE 40 MG INJ VIAL IVP SCH (09:36)
[2021-06-28] MEDS: LABETALOL 200 MG TAB PO SCH (09:36)
--- NOTE | 2021-06-28 11:47 | NUR ---
DC PAPERS SIGNED, IV REMOVED. DISCHARGE INSTRUCTION GIVEN AND VERBALIZED UNDERSTANDING. WAITING FOR FAMILY FOR SYNTHETIC FILAMENT SPINNER.
--- NOTE | 2021-06-28 13:30 | NUR ---
PATIENT DC TO HOME VIA WHEELCHAIR WITH DC INSTRUCTION AND PRESCRIPTION GIVEN AND VERBALIZED UNDERSTANDING, IN STABLE CONDITION.
== END 2021-06-28 13:30 | disposition home or self-care (01) | DRG 304 ==
LOC: MED 11:50 → MTU 15:52
PROVIDERS: ADMIT Hospitalist; ATTEND Hospitalist
DX: I16.0 Hypertensive urgency (principal); N17.0 Acute kidney failure with tubular necrosis; N18.4 Chronic kidney disease, stage 4 (severe); D72.829 Elevated white blood cell count, unspecified; F12.90 Cannabis use, unspecified, uncomplicated; D63.8 Anemia in other chronic diseases classified elsewhere; E87.5 Hyperkalemia; E10.22 Type 1 diabetes mellitus with diabetic chronic kidney disease; E10.43 Type 1 diabetes mellitus with diabetic autonomic (poly)neuropathy; K31.84 Gastroparesis; I12.9 Hypertensive chronic kidney disease with stage 1 through stage 4 chronic kidney disease, or unspecified chronic kidney disease; E87.8 Other disorders of electrolyte and fluid balance, not elsewhere classified; M32.9 Systemic lupus erythematosus, unspecified; Z20.822 Contact with and (suspected) exposure to COVID-19; Z79.899 Other long term (current) drug therapy; Z84.1 Family history of disorders of kidney and ureter
CPT/HCPCS: 36415; 71045; 80048; 80053; 80305; 81001; 81025; 82550; 82553; 82948; 83036; 83605; 83735; 83874; 83880; 84100; 84484; 85025; 85610; 85730; 87040; 87081; 87086; 93005; 96361; 96365; 96375; 99291; C9113; J1170; J1200; J2270; J2405; J2765; J3490; J7060; Q0092

== ENCOUNTER 2021-07-15 08:48 | Inpatient (IN) | payer OTHER, MEDICAID ==
[~2021-07-15] VITALS: Ht 162.6 cm; Wt 71.2 kg
[2021-07-15] MEDS: NACL 0.9% 1,000 ML IV SCH ×2 (00:50→13:01)
[~2021-07-15 08:48] MED LIST: AMIT10TA36 PO; AMLO10TA PO; HUMALO; LANTUS; METO-485 PO; ONDA4TAB PO; PANT40EC PO; TRA200 PO
[2021-07-15 08:53] VITALS: BP 154/113
--- NOTE | 2021-07-15 09:03 | NUR ---
Patient wheelchair assisted to bed 3.
[2021-07-15] MEDS ORDERED: ONDANSETRON 4 MG/2 ML VIAL ONE (09:08)
[2021-07-15] MEDS ORDERED: ONDANSETRON 4 MG/2 ML VIAL IVP ONE (09:15)
[2021-07-15] MEDS ORDERED: NACL 0.9% 1,000 ML IV ONE (09:15)
--- NOTE | 2021-07-15 09:15 | NUR ---
Dr. Cerda is evaluating patient at bedside
--- NOTE | 2021-07-15 09:30 | NUR ---
CHANGED ZOFRAN ROUTE FROM IVP TO IM PER ERMD. UNABLE TO ESTABLISH IV SITE AT THIS TIME. GIVEN IM GLUTE MED ON R SIDE.
[2021-07-15 09:35] LABS: BASOPHILS # (AUTO) 0.1 K/uL (0.00-0.22); BASOPHILS % (AUTO) 0.7 % (0.0-2.0); EOSINOPHILS # (AUTO) 0.5 K/uL (0-0.4); EOSINOPHILS % (AUTO) 3.3 % (0.0-4.0); HEMATOCRIT 35.6 % (36-48); HEMOGLOBIN 11.6 g/dL (12.0-16.0); LYMPHOCYTES # (AUTO) 1.5 K/uL (2.5-16.5); LYMPHOCYTES % (AUTO) 10.2 % (20.5-51.1); MEAN CORPUSCULAR HEMOGLOBIN 30 pg (27-31); MEAN CORPUSCULAR HGB CONC 33 g/dL (33-37); MEAN CORPUSCULAR VOLUME 90.8 fL (80-94); MONOCYTES # (AUTO) 0.4 K/uL (0.8-1.0); MONOCYTES % (AUTO) 2.4 % (1.7-9.3); NEUTROPHILS # (AUTO) 12.1 K/uL (1.8-7.7); NEUTROPHILS % (AUTO) 83.4 % (42.2-75.2); PLATELET COUNT (AUTO) 376 K/uL (140-450); RED BLOOD CELL COUNT(AUTO) 3.92 MIL/uL (4.20-5.40); WHITE BLOOD COUNT (AUTO) 14.5 K/uL (4.8-10.8)
--- NOTE | 2021-07-15 09:35 | NUR ---
Blood sample walked to lab and handed to CPT Terrance.
[2021-07-15] MEDS ORDERED: HALOPERIDOL IM 5 MG/ML VIAL IM ONE (09:40)
[2021-07-15 09:50] LABS: ALBUMIN 3.7 g/dL (3.4-5.0); CARBON DIOXIDE 20.6 mmol/L (21-32); CREATININE 3.3 mg/dL (0.6-1.3); MAGNESIUM 2.7 mg/dL (1.8-2.4); POTASSIUM 4.6 mmol/L (3.5-5.1); TOTAL BILIRUBIN 0.3 mg/dL (0.0-1.0)
--- NOTE | 2021-07-15 10:12 | NUR ---
35 Y/O F BIB FRIEND FROM HOME, PATIENT PRESENTS TO ED WITH FRIEND WHO STATES PT IS HYPERTENSIVE, C/O N&V AND HIGH POTASSIUM LEVELS. PATIENT NOT ANSWERING QUESTIONS AT THIS TIME. SKIN IS PINK/COOL/DRY; AAOX2 DOES NOT AMBULATE WITH STEADY GAIT AT THIS TIME; LUNGS CLEAR BL; HR EVEN AND REGULAR; PT DENIES ANY FEVER, CP, SOB, OR COUGH AT THIS TIME; PATIENT STATES PAIN OF 10/10 AT THIS TIME; PATIENT POSITIONED FOR COMFORT; HOB ELEVATED; BEDRAILS UP X2; BED DOWN. ER MD MADE AWARE OF PT STATUS. PT ACTIVELY DRY HEAVING WITH SOME EMESIS OUTPUT. PMH: GASTROPARESIS, HTN, DM NKA
[2021-07-15] MEDS ORDERED: METOCLOPRAMIDE 10 MG/2 ML INJ VIAL IVP ONE (11:15)
[2021-07-15] MEDS ORDERED: MORPHINE SULFATE 4 MG/ML SYR IVP ONE (11:50)
[2021-07-15] MEDS ORDERED: MAG SULF 2000 MG/WATER PREMIX 50 ML IV PRN (12:25)
[2021-07-15] MEDS ORDERED: metroNIDAZOLE 500 MG/NS PREMIX 100 ML IV ONE (12:25)
[2021-07-15] MEDS ORDERED: ONDANSETRON 4 MG/2 ML VIAL IM/IVP PRN (12:25)
[2021-07-15] MEDS ORDERED: POTASSIUM CHLORIDE 40 MEQ, LIDOCAINE MPF 1% 25 MG in NACL 0.9% 250 ML IV PRN (12:25)
[2021-07-15] MEDS ORDERED: DOCUSATE SODIUM 100 MG GELCAP PO PRN (12:25)
[2021-07-15] MEDS ORDERED: MAGNESIUM OXIDE 400 MG TAB PO PRN (12:25)
[2021-07-15] MEDS ORDERED: HYDROcodone/APAP 5/325 MG 1 TAB TAB PO PRN (12:25)
[2021-07-15] MEDS ORDERED: ACETAMINOPHEN 325 MG TAB PO PRN (12:25)
[2021-07-15] MEDS: PANTOPRAZOLE 40 MG INJ VIAL IVP SCH (13:01)
[2021-07-15 13:04] LABS: PHOSPHORUS 3.3 mg/dL (2.5-4.9)
[2021-07-15 13:59] LABS: BARBITURATE, URINE NEGATIVE ng/ml (NEG <=200); BENZODIAZEPINE, URINE NEGATIVE ng/mL (NEG <=200); CANNABINOID, URINE POSITIVE ng/mL (NEG <=50); COCAINE, URINE NEGATIVE ng/mL (NEG <=300); OPIATE, URINE NEGATIVE ng/mL (NEG <=2000); PHENCYCLIDINE SCREEN,URINE NEGATIVE ng/mL (NEG <=25)
--- NOTE | 2021-07-15 14:50 | NUR ---
QUEEN MELANY (FRIEND OF PT) CALLED FOR UPDATE AND REQUESTED FOR PATIENT TO CALL HER BACK. FRIEND WAS YELLING OVER THE PHONE TO "SHUT THE FUCK AND LET ME TALK." CONTINUED TO YELL, I LET HER KNOW THAT PT WILL CONTACT HER WHEN SHE WAKES UP.
--- NOTE | 2021-07-15 17:00 | NUR ---
MD FORBES WAS CONTACTED FOR HTN. VERBAL ORDER FOR ONE DOSE NOW OF HYDRALIZINE 10MG IVP. PT UNABLE TO GIVE AT HOME MED LIST AT THIS TIME.
[2021-07-15] MEDS ORDERED: hydrALAZINE 20 MG/ML VIAL IVP PRN (17:30)
--- NOTE | 2021-07-15 17:30 | NUR ---
Patient appears to be resting comfortably in bed. Vital Signs within normal limits. Respirations even and unlabored.
--- NOTE | 2021-07-15 19:39 | NUR ---
PT REPORTED TAKING 2 HTN MEDS, UNABLE TO RECALL NAMES AND STATES SHE DOES HAVE ANYONE WHO COULD SEND MEDICATION NAMES TO HER.
--- NOTE | 2021-07-15 19:52 | NUR ---
TRIED TO CALL REPORT TO MARYT BUSTOS (TELEMETRY UNIT) BUT LINE IS BUSY AT THIS TIME. WILL TRY AGAIN.
--- NOTE | 2021-07-15 20:00 | NUR ---
Patient will be admitted to care of DR. FORBES. ADMITTED TO TELEMETRY UNIT. Will go to room 120A. Belongings list completed. Report to MARTY BUSTOS.
--- NOTE | 2021-07-15 20:13 | NUR ---
PT. TAKEN TO ROOM 120A (TELEMETRY UNIT) VIA GURNEY, ACCOMPANIED BY EMT AND RN.
--- NOTE | 2021-07-15 21:00 | NUR ---
RECEIVED PT FROM ER.PLACED ON BED APPLIED TELE AND SHOWING ST.PT IS DROWSY AND REFUSED TO ANSWER MY QUESTIONS,SHE SAID LATER. I WILL WAIT AND TRY AGAIN LATER TO COLLECT INFORMATIONS.
[2021-07-15] MEDS ORDERED: DEXT 5% / NACL 0.45% 1,000 ML IV SCH (22:35)
[2021-07-15] MEDS ORDERED: DEXTROSE 50% 50 ML SYR IVP PRN (22:35)
[2021-07-15 23:03] VITALS: BP 184/102
--- NOTE | 2021-07-15 23:29 | NUR ---
TRIED AGAIN SEVERAL TIMES BUT GUILLERMO VELAZQUEZ REFUSED TO ANSWER THE QUESTIONS.
[2021-07-16] VITALS: BP 169/100
--- NOTE | 2021-07-16 01:05 | NUR ---
SLEEPING.NO S/S OF ANY DISTRESS NOTED.IVF IS IN PROGRESS.HR IS SR.BLOOD PRESSURE TRENDING DOWN.
[2021-07-16 04:00] VITALS: BP 204/113
[2021-07-16] MEDS: hydrALAZINE 20 MG/ML VIAL IVP PRN ×2 (05:47→12:20)
[2021-07-16 05:59] LABS: BASOPHILS # (AUTO) 0.1 K/uL (0.00-0.22); BASOPHILS % (AUTO) 0.4 % (0.0-2.0); EOSINOPHILS % (AUTO) 0.1 % (0.0-4.0); HEMATOCRIT 31.2 % (36-48); HEMOGLOBIN 10.2 g/dL (12.0-16.0); LYMPHOCYTES # (AUTO) 1.2 K/uL (2.5-16.5); LYMPHOCYTES % (AUTO) 7.4 % (20.5-51.1); MEAN CORPUSCULAR HEMOGLOBIN 30 pg (27-31); MEAN CORPUSCULAR HGB CONC 33 g/dL (33-37); MEAN CORPUSCULAR VOLUME 90.8 fL (80-94); MONOCYTES # (AUTO) 0.8 K/uL (0.8-1.0); MONOCYTES % (AUTO) 5.3 % (1.7-9.3); NEUTROPHILS # (AUTO) 13.5 K/uL (1.8-7.7); NEUTROPHILS % (AUTO) 86.8 % (42.2-75.2); PLATELET COUNT (AUTO) 336 K/uL (140-450); RED BLOOD CELL COUNT(AUTO) 3.43 MIL/uL (4.20-5.40); RED CELL DISTRIBUTION WIDTH 17.6 % (11.6-13.7); WHITE BLOOD COUNT (AUTO) 15.6 K/uL (4.8-10.8)
[2021-07-16] MEDS: BLOOD GLUCOSE MONITORING 1 DEV DEV FS SCH ×4 (06:00→21:06)
--- NOTE | 2021-07-16 06:09 | NUR ---
SLEPT WELL.BP WENT UP AGAIN TOOK ORDER FOR HYDRALAZINE IVP.IT ADMINISTERED.WILL REASSESS LATER.GH=002 DO NOT COVER.PT IS NPO.HR IS SR-ST.IVF INFUSING WELL.NO DISTRESS NOTED NOW.
[2021-07-16 06:15] LABS: ANION GAP 18.1 (8-16); CARBON DIOXIDE 19.1 mmol/L (21-32); CREATININE 3.6 mg/dL (0.6-1.3); POTASSIUM 4.2 mmol/L (3.5-5.1)
--- NOTE | 2021-07-16 06:58 | NUR ---
RECHECKED UJ=[id number].SHE HAS PO BP MD AT 0900 AM.
--- NOTE | 2021-07-16 07:10 | NUR ---
RECEIVED REPORT FROM CEMENTER MACHINE JOINER NURSE FOR CONTINUITY OF CARE. PT IS AWAKE AND ALERT. A&OX4. ON RA WITH BREATHING UNLABORED. SR ON TELE MONITOR. AMBULATORY INDEPENDENTLY. SKIN IS WARM, DRY, AND INTACT. IV IS IN THE RIGHT AC 20 GAUGE INFUSING FLUIDS ORDERED. PT IS STABLE. PLAN OF CARE DISCUSSED.
--- NOTE | 2021-07-16 07:26 | NUR ---
ENDORSED TO AM RN .PT IS AWAKE NOW AND CONDITION IS STABLE.
--- NOTE | 2021-07-16 07:51 | NUR ---
PATIENT HAS BEEN SCREENED AND CATEGORIZED MODERATE NUTRITION RISK. PATIENT WILL BE SEEN WITHIN 3-5 DAYS OF ADMISSION. 07/18/21 07/20/[address]
[2021-07-16 08:00] VITALS: BP 214/109
[2021-07-16] MEDS: PANTOPRAZOLE 40 MG INJ VIAL IVP SCH (08:06)
[2021-07-16] MEDS: LABETALOL 200 MG TAB PO SCH ×2 (08:07→20:59)
[2021-07-16] MEDS: METOCLOPRAMIDE 10 MG/2 ML INJ VIAL IVP PRN ×2 (08:07→16:30)
[2021-07-16] MEDS: MORPHINE SULFATE 2 MG/ML SYR IVP PRN ×3 (08:07→21:02)
--- NOTE | 2021-07-16 08:07 | NUR ---
PT STATES SHE HAS PAIN AT A SCALE OF 10/10. PT STATES THE PAIN IS IN HER ABDOMEN. PT WAS GIVEN MORPHINE FOR PAIN IVP. WILL CONTINUE TO MONITOR.
[2021-07-16] MEDS: amLODIPine 5 MG TAB PO SCH (08:08)
[2021-07-16] MEDS: NACL 0.9% 1,000 ML IV SCH ×2 (08:54→16:23)
--- NOTE | 2021-07-16 10:00 | NUR ---
RECHECKED PT'S BP AFTER GIVING THE BP MEDS. BP IS NOW 160/100. WILL CONTINUE TO MONITOR BP.
--- NOTE | 2021-07-16 11:47 | NUR ---
MADE ROUNDS ON PT. SHE IS LAYING QUIETLY IN BED. NO SIGNS OF DISTRESS. PT DENIES PAIN AT THIS TIME. BREATHING IS UNLABORED ON RA. WILL CONTINUE TO MONITOR.
[2021-07-16 12:00] VITALS: BP 213/109
[2021-07-16] MEDS: INSULIN LISPRO SLIDING SCALE 100 UNITS/ML VIAL SUBQ PRN (12:24)
--- NOTE | 2021-07-16 13:32 | NUR ---
PT IS SLEEPING. NO DISTRESS NOTED. NO PAIN APPARENT AT THIS TIME. BREATHING IS UNLABORED. PT IS STABLE.
--- NOTE | 2021-07-16 15:40 | NUR ---
DC PLANNING: THE PATIENT IS KNOWN TO THE CORE DIPPER FROM A PREVIOUS ADMISSION. [place] AND HAS NO MOBILITY ISSUES. SHE HAS AN [facility] WORKER WHO HAS 80 HRS/MONTH. THE PATIENT SEES A NUMBER OF SPECIALISTS AT [facility] AND WAS THERE LAST WEEK FOR F/U. THE PATIENT IS WAITING FOR AN INSULIN PUMP AND STATES THAT SHE HAS HAD OTHER HOSPITALIZATIONS FOR HYPERTENSION AND THAT IT'S USUALLY RESOLVED BY ADJUSTING HER EXISTING HTN MEDS. THE PATIENT STATES THAT SHE IS COMPLIANT WITH TAKING HER MEDICATION AND THAT THIS IS A RECURRING ISSUE. SHE IS HERE VISITING A FRIEND AND WILL DC TO HER FRIENDS HOUSE WHEN STABLE. CM WILL FOLLOW FOR NEEDS. Addendum: 07/17/21 at 1223 by Dejah Presley CM DC PLANNING: TC FROM AD H[facility] AT [facility] ASKING FOR CLINICAL UPDATE ON THE PATIENT. VERBAL REVIEW GIVEN, CLINICALS ALSO FAXED TO [phone]. DC ORDER RECEIVED, THE PATIENT WILL RETURN HOME. CM WILL FOLLOW NEEDED.
[2021-07-16 16:00] VITALS: BP 209/107
--- NOTE | 2021-07-16 16:23 | NUR ---
PT COMPLAINING OF PAIN. ADMINISTERED PRN PAIN MEDICATION PER MD ORDER. BP WAS 217/95. PT FEELS NAUSEOUS. ADMINISTERED REGLAN PRN MEDICATION FOR NAUSEA PER MD ORDER. PT IS STABLE. WILL CONTINUE TO MONITOR.
--- NOTE | 2021-07-16 17:00 | NUR ---
INFORMED DR. FORBES ON THE PHONE THAT THE PT'S BP IS 207/109 AND THE HR IS IN THE 130'S. HE ORDERED CLONIDINE ONE TIME DOSE 0.2 MG. HE ALSO ORDERED TO CHANGE THE HYDRALAZINE PRN ORDER FROM 5 MG TO 10 MG IVP. WILL ADMINISTER ONCE VERIFIED.
[2021-07-16] MEDS ORDERED: hydrALAZINE 20 MG/ML VIAL IVP PRN (17:05)
[2021-07-16] MEDS ORDERED: CLONIDINE HYDROCHLORIDE 0.1 MG TAB PO SCH (17:10)
--- NOTE | 2021-07-16 17:31 | NUR ---
PT WAS GIVEN CLONIDINE PO FOR ELEVATED BP. WILL REASSESS BP IN AN HOUR. PT STATES SHE HAS NO PAIN OR NAUSEA AT THIS TIME.
[2021-07-16 17:45] LABS: APPEARANCE,URINE CLEAR (CLEAR); BILIRUBIN,URINE NEGATIVE (NEGATIVE); BLOOD, URINE 2+ (NEGATIVE); LEUKOCYTE ESTERASE ,URINE NEGATIVE (NEGATIVE); NITRITE, URINE NEGATIVE (NEGATIVE); UGLUCOSE NEGATIVE (NEGATIVE)
[2021-07-16 18:06] LABS: COLOR,URINE STRAW (YELLOW); RBC,URINE 0-5 /HPF (0-5); WBC,URINE NONE SEEN /HPF (0-5)
--- NOTE | 2021-07-16 19:15 | NUR ---
ENDORSED PT TO GREEN FEED ATTENDANT NURSE FOR CONTINUITY OF CARE. PT IS STABLE AT THIS TIME. PLAN OF CARE DISCUSSED.
--- NOTE | 2021-07-16 19:15 | NUR ---
RECEIVED REPORT FROM AM NURSE, FOR CONTINUITY OF CARE. PT IS STABLE.
[2021-07-16 20:00] VITALS: BP 148/90
--- NOTE | 2021-07-16 20:00 | NUR ---
PT IS AWAKE, A&OX4. ON RA WITH BREATHING NON LABORED. PT IS AMBULATORY INDEPENDENTLY. SKIN IS WARM, DRY AND INTACT. IV IS IN THE RIGHT AC 20 GAUGE INFUSING NS @ 100MLS/HR. ALL SAFETY PRECAUTIONS IN PLACE. PT IS STABLE. PLAN OF CARE DISCUSSED.
[2021-07-16] MEDS ORDERED: AMITRIPTYLINE 10 MG TAB PO SCH (21:00)
--- NOTE | 2021-07-16 21:02 | NUR ---
PT COMPLAIN OF PAIN IN THE ABDOMEN WITH PAIN SCALE OF 8/10. PT GIVEN MORPHINE 1 MG IVP PRN ORDER WITH PT BP 148/90. WILL CONTINUE TO MONITOR.
--- NOTE | 2021-07-16 21:06 | NUR ---
BS 126, NO INSULIN COVERAGE NEEDED. LABETALOL 100 MG TAB GIVEN WITH PT BP 148/90. MEDICATION EDUCATION PROVIDED AND PT VERBALIZED UNDERSTANDING. WILL CONTINUE TO MONITOR.
[2021-07-16] MEDS ORDERED: ONDANSETRON 4 MG/2 ML VIAL IVP SCH (23:35)
[2021-07-16] MEDS ORDERED: ONDANSETRON 4 MG/2 ML VIAL ONE (23:35)
--- NOTE | 2021-07-16 23:40 | NUR ---
PT COMPLAIN OF NAUSEA. TEXTED DR. FORBES WITH ORDER ZOFRAN X1 4MG IVP. MEDICATION GIVEN AND PROVIDED MEDICATION TEACHING AND PT VERBALIZED UNDERSTANDING. RADIOLOGIST AT BEDSIDE TO TAKE THE CT OF ABD, BUT PT REFUSED DUE TO NAUSEA AT THIS TIME. [employer] TWISTER HELPER SAID SHE WILL ENDORSE IT TO AM STAFF.
[2021-07-17] VITALS: BP 147/91
--- NOTE | 2021-07-17 | NUR ---
CHECKED PT WITH VITAL SIGNS FOLLOWS:BP-147/91, LA-93, RR- 18, T-99.1, O2 SAT @97%. PROVIDED COMFORT AND COOLING MEASURES. ALL SAFETY PRECAUTIONS IN PLACE.
--- NOTE | 2021-07-17 02:30 | NUR ---
PT IN BED ASLEEP , NO S/S OF PAIN OR DISTRESS NOTED.
[2021-07-17 04:00] VITALS: BP 162/99
--- NOTE | 2021-07-17 04:45 | NUR ---
MADE ROUNDS ON PT, SLEEPING IN NO ACUTE DISTRESS. CHEST RISE AND FALL IS SYMMETRICAL. ALL SAFETY MEASURES IN PLACE.
[2021-07-17 06:14] LABS: BASOPHILS # (AUTO) 0.1 K/uL (0.00-0.22); BASOPHILS % (AUTO) 0.9 % (0.0-2.0); EOSINOPHILS # (AUTO) 0.3 K/uL (0-0.4); EOSINOPHILS % (AUTO) 2.4 % (0.0-4.0); HEMATOCRIT 28.2 % (36-48); HEMOGLOBIN 9.1 g/dL (12.0-16.0); LYMPHOCYTES # (AUTO) 2.3 K/uL (2.5-16.5); LYMPHOCYTES % (AUTO) 20.3 % (20.5-51.1); MEAN CORPUSCULAR HEMOGLOBIN 29 pg (27-31); MEAN CORPUSCULAR HGB CONC 32 g/dL (33-37); MEAN CORPUSCULAR VOLUME 90.2 fL (80-94); MONOCYTES # (AUTO) 0.7 K/uL (0.8-1.0); MONOCYTES % (AUTO) 6.4 % (1.7-9.3); NEUTROPHILS # (AUTO) 7.8 K/uL (1.8-7.7); PLATELET COUNT (AUTO) 254 K/uL (140-450); RED BLOOD CELL COUNT(AUTO) 3.13 MIL/uL (4.20-5.40); RED CELL DISTRIBUTION WIDTH 16.9 % (11.6-13.7); WHITE BLOOD COUNT (AUTO) 11.1 K/uL (4.8-10.8)
--- NOTE | 2021-07-17 06:19 | NUR ---
PT IS AWAKE IN BED, V/S FOLLOWS: BP-162/99, NM-86, RR 18, T-98.4, O2 SAT @100%. PRN HYDRALAZINE 10MG IVP GIVEN ORDERED. EDUCATED PT ON MEDICATION AND VERBALIZED UNDERSTANDING. LAB DRAWS DONE AT BEDSIDE. PT DENIES ANY PAIN. DENIES N/V. WILL CONTINUE TO MONITOR. ALL UNIVERSAL PRECAUTIONS IN PLACE.
[2021-07-17 06:23] LABS: ANION GAP 16.9 (8-16); CARBON DIOXIDE 19.9 mmol/L (21-32); CREATININE 3.6 mg/dL (0.6-1.3); POTASSIUM 3.8 mmol/L (3.5-5.1)
[2021-07-17] MEDS: BLOOD GLUCOSE MONITORING 1 DEV DEV FS SCH ×2 (06:23→11:25)
[2021-07-17] MEDS: NACL 0.9% 1,000 ML IV SCH (06:33)
--- NOTE | 2021-07-17 07:15 | NUR ---
RECEIVED BEDSIDE REPORT FROM STRATEGIC PLANNER NURSE FOR CONTINUITY OF CARE. PT IS AWAKE AND ALERT. A&OX4. ON RA WITH BREATHING UNLABORED. PT DENIES PAIN AT THIS TIME. AMBULATORY INDEPENDENTLY. SKIN IS WARM, DRY, AND INTACT. PT IS STABLE. PLAN OF CARE DISCUSSED.
--- NOTE | 2021-07-17 07:20 | NUR ---
ENDORSED PT TO AM SHIFT FOR CONTINUITY OF CARE. PT IS STABLE.
[2021-07-17 08:00] VITALS: BP 134/83
[2021-07-17] MEDS: LABETALOL 200 MG TAB PO SCH (09:03)
[2021-07-17] MEDS: PANTOPRAZOLE 40 MG INJ VIAL IVP SCH (09:04)
[2021-07-17] MEDS: amLODIPine 5 MG TAB PO SCH (09:04)
[2021-07-17] MEDS ORDERED: DEXT 5% / NACL 0.45% 1,000 ML IV SCH (09:25)
--- NOTE | 2021-07-17 09:30 | NUR ---
PT IS SLEEPING. PT WAS AWOKEN WHEN CALLED BY NAME. A&OX4. ANSWERING QUESTIONS APPROPRIATELY. ASKED IF PT WAS FEELING NAUSEOUS OR HAD ANY EPISODES OF EMESIS AND SHE DENIED. ALSO ASKED IF PT WAS HAVING PAIN AND SHE STATED SHE DID NOT HAVE PAIN. PT IS STABLE. BP IS WITHIN NORMAL LIMITS.
--- NOTE | 2021-07-17 11:00 | NUR ---
PT RECEIVED A BAG OF GIFTS WITH BALLOON FROM FAMILY THAT DROPPED IT OFF AT THE FRONT LOBBY. PT WAS GIVEN BELONGINGS AND THEY ARE AT THE BEDSIDE.
[2021-07-17] MEDS: INSULIN LISPRO SLIDING SCALE 100 UNITS/ML VIAL SUBQ PRN (11:27)
--- NOTE | 2021-07-17 11:27 | NUR ---
PT WAS GIVEN 2 UNITS HUMALOG INSULIN PER SLIDING SCALE. PT'S BS READING IS 174. MEDICATION EDUCATION PROVIDED AND PT VERBALIZED UNDERSTANDING.
[2021-07-17] MEDS ORDERED: METO-485 PO (11:57)
[2021-07-17 12:00] VITALS: BP 135/79
--- NOTE | 2021-07-17 12:00 | NUR ---
ASKED PT IF SHE WAS HAVING PAIN OR NAUSEA AT THIS TIME AND SHE DID NOT RESPOND. PT IS AWAKE AND ALERT BUT REFUSING TO RESPOND TO QUESTIONS.
[2021-07-17] MEDS ORDERED: NIFE60TA39 PO (12:19)
[2021-07-17] MEDS ORDERED: TRA200 PO (12:19)
[2021-07-17 12:44] VITALS: BP 135/79
--- NOTE | 2021-07-17 14:15 | NUR ---
DISCHARGE INSTRUCTIONS EXPLAINED AND PT VERBALIZED UNDERSTANDING. PT SIGNED ALL THE DISCHARGE PAPERWORK. EXPLAINED THE IMPORTANCE OF THE MEDICATIONS ORDERED AND SIDE EFFECTS. ALSO PROVIDED PT TEACHING FOR IMPORTANCE OF MEDICATION COMPLIANCE AND WORSENING SIGNS/SYMPTOMS OF HER CONDITION. IV WAS REMOVED AND BLEEDING WAS CONTROLLED. ID BAND WAS REMOVED. PT CHANGED INTO OWN CLOTHING. VS ARE STABLE. NO DISTRESS NOTED ON RA. PT IS STABLE AND WAS DISCHARGED FROM THE HOSPITAL VIA WHEELCHAIR PICKED UP BY FAMILY.
[2021-07-17] MEDS ORDERED: AMOX500C25 PO (14:17)
[2021-07-17] MEDS ORDERED: LABETALOL 200 MG TAB PO SCH (21:00)
[2021-07-18] MEDS ORDERED: NIFEdipine 60 MG TABER PO SCH (09:00)
[2021-07-18] MEDS ORDERED: NIFEdipine 30 MG TABER PO SCH (09:00)
== END 2021-07-17 13:55 | disposition home or self-care (01) | DRG 73 ==
LOC: MED 08:48 → MTU 12:23
PROVIDERS: ADMIT Hospitalist; ATTEND Hospitalist
DX: E10.43 Type 1 diabetes mellitus with diabetic autonomic (poly)neuropathy (principal); N17.0 Acute kidney failure with tubular necrosis; I12.0 Hypertensive chronic kidney disease with stage 5 chronic kidney disease or end stage renal disease; N18.5 Chronic kidney disease, stage 5; I16.0 Hypertensive urgency; K31.84 Gastroparesis; K21.9 Gastro-esophageal reflux disease without esophagitis; F12.90 Cannabis use, unspecified, uncomplicated; D63.8 Anemia in other chronic diseases classified elsewhere; E10.22 Type 1 diabetes mellitus with diabetic chronic kidney disease; E83.41 Hypermagnesemia; M32.9 Systemic lupus erythematosus, unspecified; D72.829 Elevated white blood cell count, unspecified; Z91.14 Patient's other noncompliance with medication regimen
CPT/HCPCS: 36415; 80048; 80053; 80305; 81001; 81025; 82150; 82948; 83690; 83735; 84100; 85025; 87081; 87086; 93005; 96361; 96365; 96375; 99285; C9113; J0360; J0696; J1630; J2270; J2405; J2765; J3490; J7060

== ENCOUNTER 2021-08-02 11:39 | Emergency (ER) | payer OTHER, MEDICAID ==
[~2021-08-02] VITALS: Ht 170.2 cm; Wt 95.3 kg
[~2021-08-02 11:39] MED LIST changes: -AMLO10TA PO; +AMOX500C25 PO; +NIFE60TA39 PO
--- NOTE | 2021-08-02 11:44 | NUR ---
PT W/C ASSISTED TO ER BED9
[2021-08-02 11:58] VITALS: BP 145/89
--- NOTE | 2021-08-02 12:01 | NUR ---
35 Y/O FEMALE BIB GIRLFRIEND C/O NAUSEA/VOMITING AND ABDOMINAL PAIN X4 DAYS. PT REPORTS IT IS GETTING WORSE. PT IS SCREAMING AND NOT SITTING STILL. PT IS NOT ANSWERING MANY QUESTIONS AND HAS TO BE REDIRECTED FREQUENTLY. PT A/O X4 WITH EVEN AND UNLABORED RESPIRATIONS. PT GIVEN EMESIS BAG. PMH: DM, KIDNEY DISEASE, HTN, HLD NKDA
--- NOTE | 2021-08-02 12:10 | NUR ---
PT ASSISTED TO RESTOOM FOR URINE SAMPLE, PT W/C ASSISTED BACK TO BED
--- NOTE | 2021-08-02 12:30 | NUR ---
LAB AT BEDSIDE FOR BLOOD DRAW
--- NOTE | 2021-08-02 12:39 | NUR ---
PT SCREAMING, AGITATED AND STUMBLING IN HALLWAY, NOT FOLLOWING DIRECTIONS. PT ASSISTED BACK TO BED. DR ALVA MADE AWARE
--- NOTE | 2021-08-02 12:41 | NUR ---
DR ALVA AT BEDSIDE EVALUATING PT
[2021-08-02] MEDS ORDERED: HALOPERIDOL IM 5 MG/ML VIAL ONE (12:44)
[2021-08-02 12:45] LABS: BASOPHILS # (AUTO) 0.1 K/uL (0.00-0.22); BASOPHILS % (AUTO) 0.4 % (0.0-2.0); EOSINOPHILS # (AUTO) 0.1 K/uL (0-0.4); EOSINOPHILS % (AUTO) 0.7 % (0.0-4.0); HEMATOCRIT 32.7 % (36-48); HEMOGLOBIN 10.9 g/dL (12.0-16.0); LYMPHOCYTES # (AUTO) 0.7 K/uL (2.5-16.5); MEAN CORPUSCULAR HEMOGLOBIN 30 pg (27-31); MEAN CORPUSCULAR HGB CONC 33 g/dL (33-37); MEAN CORPUSCULAR VOLUME 89.2 fL (80-94); MONOCYTES # (AUTO) 0.3 K/uL (0.8-1.0); MONOCYTES % (AUTO) 1.7 % (1.7-9.3); NEUTROPHILS # (AUTO) 16.8 K/uL (1.8-7.7); NEUTROPHILS % (AUTO) 93.2 % (42.2-75.2); PLATELET COUNT (AUTO) 360 K/uL (140-450); RED BLOOD CELL COUNT(AUTO) 3.66 MIL/uL (4.20-5.40); RED CELL DISTRIBUTION WIDTH 16.8 % (11.6-13.7)
[2021-08-02] MEDS ORDERED: LORazepam 2 MG/ML VIAL IM ONE (12:45)
[2021-08-02] MEDS ORDERED: HALOPERIDOL IM 5 MG/ML VIAL IVP ONE (12:45)
[2021-08-02 13:07] LABS: ANION GAP 19.6 (8-16); CARBON DIOXIDE 19.7 mmol/L (21-32); POTASSIUM 4.3 mmol/L (3.5-5.1)
[2021-08-02 13:08] LABS: ALBUMIN 3.6 g/dL (3.4-5.0); CREATININE 3.6 mg/dL (0.6-1.3); TOTAL BILIRUBIN 0.4 mg/dL (0.0-1.0)
[2021-08-02] MEDS ORDERED: HALOPERIDOL IM 5 MG/ML VIAL IM ONE (13:15)
--- NOTE | 2021-08-02 13:23 | NUR ---
PATIENT CONTINUES TO GET OUT OF BED DESPITE RN INSTRUCTION TO STAY IN BED, NOT FOLLOWING DIRECTIONS AT THIS TIME AND IS FLAILING ARMS IN THE AIR. KLAUSD MADE AWARE.
[2021-08-02] MEDS ORDERED: METO-486 PO (13:25)
[2021-08-02 13:30] LABS: BILIRUBIN,URINE NEGATIVE (NEGATIVE); COLOR,URINE YELLOW (YELLOW); LEUKOCYTE ESTERASE ,URINE NEGATIVE (NEGATIVE); NITRITE, URINE NEGATIVE (NEGATIVE); UGLUCOSE 1+ (NEGATIVE)
[2021-08-02 13:53] LABS: APPEARANCE,URINE CLEAR (CLEAR); BLOOD, URINE 1+ (NEGATIVE); RBC,URINE 0-5 /HPF (0-5); WBC,URINE 0-5 /HPF (0-5)
[2021-08-02 13:55] LABS: BARBITURATE, URINE NEGATIVE ng/ml (NEG <=200); BENZODIAZEPINE, URINE NEGATIVE ng/mL (NEG <=200); CANNABINOID, URINE POSITIVE ng/mL (NEG <=50); COCAINE, URINE NEGATIVE ng/mL (NEG <=300); OPIATE, URINE NEGATIVE ng/mL (NEG <=2000); PHENCYCLIDINE SCREEN,URINE NEGATIVE ng/mL (NEG <=25)
[2021-08-02 14:36] VITALS: BP 183/97
--- NOTE | 2021-08-02 14:36 | NUR ---
Patient discharged with v/s stable. Written and verbal after care instructions ABOUT GASTROPARESIS given and explained. Patient alert, oriented and verbalized understanding of instructions. Ambulatory with steady gait. All questions addressed prior to discharge. ID band removed. Patient advised to follow up with PMD. Rx of REGLAN given. Patient educated on indication of medication including possible reaction and side effects. Opportunity to ask questions provided and answered.
--- NOTE | 2021-08-02 14:37 | NUR ---
PT REFUSING TO SIGN DISCHARGE PAPERWORK AND REFUSING TO LEAVE, SECURITY PAGE TO ESCORT PT OUT.
== END 2021-08-02 14:36 | disposition home or self-care (01) ==
LOC: MED 11:39
DX: E11.43 Type 2 diabetes mellitus with diabetic autonomic (poly)neuropathy (principal); E11.22 Type 2 diabetes mellitus with diabetic chronic kidney disease; E11.65 Type 2 diabetes mellitus with hyperglycemia; I12.9 Hypertensive chronic kidney disease with stage 1 through stage 4 chronic kidney disease, or unspecified chronic kidney disease; N18.9 Chronic kidney disease, unspecified; K31.84 Gastroparesis; R11.2 Nausea with vomiting, unspecified; R10.13 Epigastric pain; Z79.4 Long term (current) use of insulin; Z79.899 Other long term (current) drug therapy
CPT/HCPCS: 36415; 80053; 80305; 81001; 81025; 83690; 84484; 84702; 85025; 96372; 99291; J1630; J2060; 93005

== ENCOUNTER 2021-09-09 17:41 | Emergency (ER) | payer OTHER, MEDICAID ==
[~2021-09-09] VITALS: Ht 160 cm; Wt 74.8 kg
[~2021-09-09 17:41] MED LIST changes: +METO-486 PO
--- NOTE | 2021-09-09 17:50 | NUR ---
PT RETURNED TO CAR AT THIS TIME, STATES SHE NEEDS TO LAY DOWN. NO BED AVAILABLE AT THIS TIME
[2021-09-09 18:05] VITALS: BP 159/133
[2021-09-09] MEDS ORDERED: NACL 0.9% 1,000 ML IV ONE ×2 (19:10→21:15)
[2021-09-09] MEDS ORDERED: HALOPERIDOL IM 5 MG/ML VIAL IVP ONE (19:10)
[2021-09-09] MEDS ORDERED: METOCLOPRAMIDE 10 MG/2 ML INJ VIAL IVP ONE (19:10)
[2021-09-09] MEDS ORDERED: diphenhydrAMINE 50 MG/ML VIAL IVP ONE (19:10)
--- NOTE | 2021-09-09 19:15 | NUR ---
Lab at bedside for draw
--- NOTE | 2021-09-09 19:20 | NUR ---
35 y/o F BIB friend from home c/o N/V/D and abdominal pain x 2 hours prior to arrival. Patient A&Ox34, ambulatory, presents actively vomiting into emesis bag states 7/10 generalized abdominal pain. Patient states 10/10, sharp/constant, non-radiating pain "all over." Pt denies medications prior to arrival. Denies SOB, fever, chills, dysuria, chest pain, urinary symptoms. package handler in place. Bed locked in lowest position, side rails x 1, call light in reach. PMH: DM1, HTN, GASTROPARESIS NKA MED: INSULI
[2021-09-09 19:48] LABS: BASOPHILS # (AUTO) 0.1 K/uL (0.00-0.22); BASOPHILS % (AUTO) 0.7 % (0.0-2.0); EOSINOPHILS # (AUTO) 0.3 K/uL (0-0.4); EOSINOPHILS % (AUTO) 1.5 % (0.0-4.0); HEMATOCRIT 35.4 % (36-48); HEMOGLOBIN 11.5 g/dL (12.0-16.0); LYMPHOCYTES # (AUTO) 1.1 K/uL (2.5-16.5); LYMPHOCYTES % (AUTO) 6.6 % (20.5-51.1); MEAN CORPUSCULAR HEMOGLOBIN 29 pg (27-31); MEAN CORPUSCULAR HGB CONC 33 g/dL (33-37); MEAN CORPUSCULAR VOLUME 90.1 fL (80-94); MONOCYTES # (AUTO) 0.3 K/uL (0.8-1.0); MONOCYTES % (AUTO) 1.6 % (1.7-9.3); NEUTROPHILS # (AUTO) 15.4 K/uL (1.8-7.7); NEUTROPHILS % (AUTO) 89.6 % (42.2-75.2); PLATELET COUNT (AUTO) 421 K/uL (140-450); RED BLOOD CELL COUNT(AUTO) 3.93 MIL/uL (4.20-5.40); RED CELL DISTRIBUTION WIDTH 15.8 % (11.6-13.7); WHITE BLOOD COUNT (AUTO) 17.1 K/uL (4.8-10.8)
[2021-09-09 20:00] LABS: ANION GAP 16.9 (8-16); CARBON DIOXIDE 22.8 mmol/L (21-32); CREATININE 3.7 mg/dL (0.6-1.3); POTASSIUM 4.7 mmol/L (3.5-5.1)
--- NOTE | 2021-09-09 21:02 | NUR ---
Patient resting laying on left side in position of comfort with both eyes closed. IVF continued. patient monitor in place. Bed locked in lowest position, side rails x 2.
--- NOTE | 2021-09-09 21:04 | NUR ---
Patient ambulated to restroom with steady/even gait. New emesis bag provided.
[2021-09-09] MEDS ORDERED: KETOROLAC 30 MG/ML VIAL IVP ONE (21:15)
--- NOTE | 2021-09-09 21:16 | NUR ---
Patient assisted back onto bed and IVF continued. Pt states pain 10/[address] Perez made aware and new orders to be placed.
--- NOTE | 2021-09-09 21:21 | NUR ---
Dr. Perez is reevaluating patient at bedside
--- NOTE | 2021-09-09 21:27 | NUR ---
BP 219/110. Dr. Perez made aware
--- NOTE | 2021-09-09 21:34 | NUR ---
Report and transfer of care endorsed to MARTY Olivarez
--- NOTE | 2021-09-09 21:34 | NUR ---
REPORT RECEIVED FROM MARTY WOLFE FOR CONTINUITY OF PT CARE AT THIS TIME.
--- NOTE | 2021-09-09 21:39 | NUR ---
PT APPEARS TO BE RESTING IN R LATERAL POSITION, BED LOCKED IN LOWEST POSITION W X1 SIDERAIL UP. BREATHING EVEN AND UNLABORED. NAD NOTED, WILL CONTINUE TO MONITOR. PT TACHYCARDIC AND HYPERTENSIVE. ERMD AWARE.
[2021-09-09] MEDS ORDERED: hydrALAZINE 20 MG/ML VIAL IVP ONE (21:45)
[2021-09-09] MEDS ORDERED: ENALAPRILAT 2.5 MG/2 ML VIAL IVP ONE ×2 (21:45→22:58)
--- NOTE | 2021-09-09 22:03 | NUR ---
PER ERMD GIVE HYDRALIZINE FIRST THEN RE-ASSESS BP AND ADMIN VASOTEC IF BP CONTINUES ELEVATED.
[2021-09-09] MEDS ORDERED: PHE25S RC (22:11)
[2021-09-09] MEDS ORDERED: METO-486 PO (22:11)
--- NOTE | 2021-09-09 22:18 | NUR ---
PT DENIES ANY PAIN AT THIS TIME.
--- NOTE | 2021-09-09 23:08 | NUR ---
PER PT OK FOR DC AFTER HYDRALIZINE AND VASOTEC ADMIN. PER INDIGO PT OK FOR DC W BP IN .
[2021-09-10 00:37] VITALS: BP 212/111
--- NOTE | 2021-09-10 00:37 | NUR ---
Patient discharged with v/s stable. Written and verbal after care instructions given and explained. Patient alert, oriented and verbalized understanding of instructions. All questions addressed prior to discharge. ID band removed. Patient advised to follow up with PMD. Rx of REGLAN, PHENERGAN given. Patient educated on indication of medication including possible reaction and side effects. Opportunity to ask questions provided and answered. PT SIGNED DISCHARGE PAPERWORK BUT REFUSING TO LEAVE D/T IT BEING COLD OUTSIDE AND WANTS TO SLEEP. SECURITY CALLED.
--- NOTE | 2021-09-10 01:07 | NUR ---
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 CHARGE NURSE MADE AWARE. PD NOTIFIED.
--- NOTE | 2021-09-10 01:37 | NUR ---
PD AT TRIAGE TO SPEAK TO PT, PT GOT UP AND LEFT HOSPITAL.
--- NOTE | 2021-09-11 04:25 | NUR ---
LATE ENTRY- 09.% NS BOLUS DISCONTINUED AT 2808
== END 2021-09-10 00:37 | disposition home or self-care (01) ==
LOC: MED 17:41
DX: E11.43 Type 2 diabetes mellitus with diabetic autonomic (poly)neuropathy (principal); K31.84 Gastroparesis; I10 Essential (primary) hypertension; Z79.4 Long term (current) use of insulin; Z79.899 Other long term (current) drug therapy
CPT/HCPCS: 36415; 80048; 85025; 96361; 96374; 96375; 99284; J0360; J1200; J1630; J1885; J2765; J3490; J7030

== ENCOUNTER 2021-09-10 13:51 | Emergency (ER) | payer OTHER, MEDICAID ==
[~2021-09-10] VITALS: Ht 165.1 cm; Wt 74.8 kg
[~2021-09-10 13:51] MED LIST changes: +PHE25S RC
[2021-09-10 13:58] VITALS: BP 193/107
--- NOTE | 2021-09-10 14:07 | NUR ---
PT TO WAIT IN LOBBY AWAITING BED
--- NOTE | 2021-09-10 14:12 | NUR ---
PT RAN INTO TRIAGE ROOM REFUSING TO LEAVE. SECURITY PAGED.
--- NOTE | 2021-09-10 14:16 | NUR ---
PT REFUSING TO GET OUT OF TRIAGE BED. SHE HAS BEEN ASSISTED INTO W/C AND SHE IS DISRUPTING CARE AT THIS TIME. WE ARE NOT ABLE TO TRIAGE ANY PATIENTS. PATIENT IN TRIAGE BED AND REFUSING TO GET INTO W/C.
[2021-09-10] MEDS ORDERED: NIFEdipine 30 MG TABER PO ONE ×2 (15:00→16:13)
[2021-09-10] MEDS ORDERED: LORazepam 2 MG/ML VIAL IVP ONE (15:00)
[2021-09-10] MEDS ORDERED: NACL 0.9% 1,000 ML IV ONE ×2 (15:00→18:35)
[2021-09-10] MEDS ORDERED: diphenhydrAMINE 50 MG/ML VIAL IVP ONE (15:00)
[2021-09-10] MEDS ORDERED: LABETALOL 100 MG/20 ML VIAL IVP ONE (15:00)
[2021-09-10] MEDS ORDERED: METOCLOPRAMIDE 10 MG/2 ML INJ VIAL IVP ONE (15:00)
--- NOTE | 2021-09-10 15:52 | NUR ---
PT W/C ASSISTED TO ER BED 8
[2021-09-10] MEDS ORDERED: LORazepam 2 MG/ML VIAL ONE (16:10)
[2021-09-10] MEDS ORDERED: METOCLOPRAMIDE 10 MG/2 ML INJ VIAL ONE (16:11)
[2021-09-10] MEDS ORDERED: diphenhydrAMINE 50 MG/ML VIAL ONE (16:11)
[2021-09-10] MEDS ORDERED: LABETALOL 100 MG/20 ML VIAL ONE (16:14)
--- NOTE | 2021-09-10 17:06 | NUR ---
LAB COLLECTED/SENT TO LAB.
[2021-09-10 17:15] LABS: HEMATOCRIT 30.6 % (36-48); HEMOGLOBIN 10.2 g/dL (12.0-16.0); MEAN CORPUSCULAR HEMOGLOBIN 30 pg (27-31); MEAN CORPUSCULAR HGB CONC 33 g/dL (33-37); MEAN CORPUSCULAR VOLUME 89.2 fL (80-94); PLATELET COUNT (AUTO) 359 K/uL (140-450); RED BLOOD CELL COUNT(AUTO) 3.43 MIL/uL (4.20-5.40); RED CELL DISTRIBUTION WIDTH 15.3 % (11.6-13.7); WHITE BLOOD COUNT (AUTO) 20.2 K/uL (4.8-10.8)
[2021-09-10 17:33] LABS: ANION GAP 15.8 (8-16); CARBON DIOXIDE 23.4 mmol/L (21-32); POTASSIUM 4.2 mmol/L (3.5-5.1)
[2021-09-10 18:24] LABS: LYMPHOCYTES % (MANUAL) 1 % (20-46); MONOCYTES % (MANUAL) 1 % (5-12)
--- NOTE | 2021-09-10 18:27 | NUR ---
PATIENT NAUSEA VOMITIGN IMPROVED, AMBULATE TO BATHROOM WITH STEADY GAIT DENIES ABDOMINAL PAIN.
[2021-09-10] MEDS ORDERED: INSULIN REGULAR, HUMAN 100 UNIT/ML VIAL SUBQ ONE (18:35)
--- NOTE | 2021-09-10 19:20 | NUR ---
REPORT ENDORSED TO ANNETTE ALL QUESTIONS ANSWERED.
[2021-09-10 19:22] VITALS: BP 149/82
--- NOTE | 2021-09-10 19:26 | NUR ---
RECEIVED REPORT FROM PADMA FERGUSON.
--- NOTE | 2021-09-10 19:30 | NUR ---
BS CHECKED AND BS IS 205
--- NOTE | 2021-09-10 20:20 | NUR ---
Patient discharged with v/s stable. Written and verbal after care instructions given and explained. Patient verbalized understanding. Wheel Chair Assisted with steady gait. All questions addressed prior to discharge. PT REWFUSED TO SIGN DISCHARGE PAPWORK. Advised to follow up with PMD.
--- NOTE | 2021-09-10 20:35 | NUR ---
The patient's care was reviewed and supervised by Delia Frye RN.
== END 2021-09-10 20:20 | disposition home or self-care (01) ==
LOC: MED 13:51
DX: E11.43 Type 2 diabetes mellitus with diabetic autonomic (poly)neuropathy (principal); E11.65 Type 2 diabetes mellitus with hyperglycemia; K31.84 Gastroparesis; G89.29 Other chronic pain; R10.9 Unspecified abdominal pain; R11.2 Nausea with vomiting, unspecified; I10 Essential (primary) hypertension; F12.90 Cannabis use, unspecified, uncomplicated; Z79.4 Long term (current) use of insulin; Z79.899 Other long term (current) drug therapy
CPT/HCPCS: 36415; 80048; 85025; 96361; 96372; 96374; 96375; 99285; J1200; J1815; J2060; J2765; J3490; J7030